=== PATIENT | female | born 1940 | race Caucasian/White ===

== ENCOUNTER 2018-06-08 07:40 | Emergency (ER) | payer MEDICARE ==
[2018-06-08 08:11] VITALS: BP 189/84
--- NOTE | 2018-06-08 08:34 | UC ---
Lower Extremity/Ankle HPI - HPI Summary HPI Summary: Pt presents with c/o left posterior leg pain that begins at mid buttocks, and radiates posteriorly to left calf and heel. Pt denies injury, strain, or hx of blood clots. Pt describes the pain as throbbing and burning. - History of Current Complaint Chief Complaint: UCLowerExtremity Stated Complaint: LEFT LEG THROBBING PAIN Time Seen by Provider: 06/08/18 08:21 Hx Obtained From: Patient ?: No Onset/Duration: Sudden Onset, Lasting Days Severity Initially: Severe Severity Currently: Severe Pain Intensity: 10 Aggravating Factor(s): Nothing Alleviating Factor(s): Nothing Able to Bear Weight: Yes - Risk Factors Gout Risk Factors: Age Over 40, Hypertension DVT Risk Factors: Negative Septic Arthritis Risk Factor: Extremes of Age - Allergies/Home Medications Allergies/Adverse Reactions: Allergies Allergy/AdvReac Type Severity Reaction Status Date / Time No Known Allergies Allergy Verified 06/08/18 08:08 PMH/Surg Hx/FS Hx/Imm Hx Previously Healthy: Yes Endocrine History: Thyroid Disease Cardiovascular History: Cardiac Disease, Hypertension - Surgical History Surgical History: Yes Surgery Procedure, Year, and Place: left ovary removed - Family History Known Family History: Positive: Cardiac Disease - Social History Occupation: Retired Lives: With Family Alcohol Use: None Substance Use Type: None Smoking Status (MU): Former Smoker Have You Smoked in the Last Year: No When Did the Patient Quit Smoking/Using Tobacco: 8 years ago - Immunization History Most Recent Influenza Vaccination: [id number] Review of Systems All Other Systems Reviewed And Are Negative: Yes Constitutional: Positive: Negative Skin: Positive: Negative Eyes: Positive: Negative ENT: Positive: Negative Respiratory: Positive: Negative Cardiovascular: Positive: Negative Gastrointestinal: Positive: Negative Genitourinary: Positive: Negative Motor: Positive: Negative Neurovascular: Positive: Negative Musculoskeletal: Positive: Arthralgia, Myalgia Neurological: Positive: Negative Psychological: Positive: Negative Is Patient Immunocompromised?: No Physical Exam Triage Information Reviewed: Yes Appearance: Pain Distress Vital Signs: Initial Vital Signs Temp 97.9 F 06/08/18 08:06 Pulse 58 06/08/18 08:06 Resp 20 06/08/18 08:06 BP 189/84 06/08/18 08:06 Pulse Ox 96 06/08/18 08:06 Vital Signs Reviewed: Yes Eye Exam: Normal ENT Exam: Normal Dental Exam: Normal Neck exam: Normal Respiratory: Positive: No respiratory distress Musculoskeletal Exam: Normal Musculoskeletal: Positive: Strength Intact, ROM Intact, Other: - pain reproducible, at mid buttock and pt c/o that pain radiates posterior left leg with palpation. no swelling, no red streaking. Lower Extremity Course/Dx - Course Course Of Treatment: I discussed with the pt the s/sx of dvt as well and pt verbalized understanding and agreed to plan of care - Differential Dx/Diagnosis Differential Diagnosis/HQI/PQRI: DVT, Sciatica Provider Diagnosis: Sciatica of left side Discharge - Sign-Out/Discharge Documenting (check all that apply): Patient Departure All imaging exams completed and their final reports reviewed: No Studies - Discharge Plan Condition: Stable Disposition: HOME Prescriptions: Cyclobenzaprine TAB* [Flexeril 10 MG TAB*] 10 mg PO Q8H PRN #15 tab PRN Reason: Pain predniSONE TAB* [Deltasone 10 MG TAB*] 30 mg PO DAILY #12 tab Patient Education Materials: Sciatica (ED), Lower Back Exercises (ED) Referrals: Joycelyn Littlejohn MD [Primary Care Provider] - As Soon As Possible Additional Instructions: PLEASE NOTE THAT IF SYMPTOMS DO NOT IMPROVE OR WORSEN, PLEASE GO DIRECTLY TO THE CLOSEST EMERGENCY ROOM. - Billing Disposition and Condition Condition: STABLE Disposition: Home
== END 2018-06-08 08:45 | disposition home or self-care (01) ==
LOC: UCCORT 07:40
DX: M54.32 Sciatica, left side (principal); I10 Essential (primary) hypertension; Z87.891 Personal history of nicotine dependence
CPT/HCPCS: 99212; G0463

== ENCOUNTER 2018-11-29 13:02 | Emergency (ER) | payer MEDICARE ==
[2018-11-29 14:09] VITALS: BP 141/83
--- NOTE | 2018-11-29 14:29 | UC ---
Respiratory Complaint HPI - HPI Summary HPI Summary: The patient is a 78-year-old female with a 2 to three-day history of nasal congestion sinus pressure and cough. Today she developed a temperature of 101.2. She now has some chest discomfort from coughing so much. She denies any nausea vomiting or diarrhea. She denies any shortness of breath. Streak of pneumonia. She states that she has a right pulmonary nodule.Ex smoker. - History of Current Complaint Chief Complaint: UCRespiratory Stated Complaint: FEVER,CHEST CONGESTION Time Seen by Provider: 11/29/18 14:22 Hx Obtained From: Patient Onset/Duration: Gradual Onset, Lasting Days Timing: Constant Severity Initially: Mild Severity Currently: Moderate Pain Intensity: 0 Pain Scale Used: 0-10 Numeric Character: Cough: Productive Alleviating Factors: Nothing Associated Signs And Symptoms: Positive: Fever, Chills, Nasal Congestion - Allergies/Home Medications Allergies/Adverse Reactions: Allergies Allergy/AdvReac Type Severity Reaction Status Date / Time No Known Allergies Allergy Verified 11/29/18 14:01 Home Medications: Home Medications Aspirin EC TAB* [Ecotrin EC Low Dose 81 MG*] 81 mg PO DAILY 11/29/18 [History Confirmed 11/29/18] Calcium Citrate/Vitamin D3 [Citracal + D3 Maximum] 1 tab PO DAILY 11/29/18 [ History Confirmed 11/29/18] Chlorphen/Dm/Acetaminophen/GG [Coricidin Hbp Day & Night] 2 cap PO Q4H PRN 11/29 [History Confirmed 11/29/18] Cholecalciferol (Vitamin D3) [Vitamin D3] 2,000 unit PO DAILY 11/29/18 [History Confirmed 11/29/18] Cyanocobalamin TAB* [Vitamin B12 TAB*] 500 mcg PO DAILY 11/29/18 [History Confirmed 11/29/18] Dm/PE/Acetaminophen/Chlorphenr [[place] Plus Cold &] 2 cap PO Q4H PRN 11/29 [History Confirmed 11/29/18] Domperidone 10 mg PO TID 11/29/18 [History Confirmed 11/29/18] Levothyroxine TAB* [Synthroid TAB*] 75 mcg PO DAILY 11/29/18 [History Confirmed 11/29/18] Omeprazole CAP (NF) [Prilosec CAP* 20 MG] 20 mg PO DAILY 11/29/18 [History Confirmed 11/29/18] Simvastatin (NF) [Zocor (NF)] 40 mg PO DAILY 11/29/18 [History Confirmed ] PMH/Surg Hx/FS Hx/Imm Hx Previously Healthy: Yes Endocrine History: Dyslipidemia Cardiovascular History: Hypertension, Atrial Fibrillation Respiratory History: Pneumonia GI/ History: Gastroesophageal Reflux - Surgical History Surgical History: Yes Surgery Procedure, Year, and Place: left ovary removed - Family History Known Family History: Positive: Cardiac Disease - Social History Alcohol Use: Rare Substance Use Type: None Smoking Status (MU): Former Smoker Length of Time of Smoking/Using Tobacco: 1 PPD x 37 Years Have You Smoked in the Last Year: No When Did the Patient Quit Smoking/Using Tobacco: 2009 - Immunization History Most Recent Influenza Vaccination: [id number] Review of Systems All Other Systems Reviewed And Are Negative: Yes Constitutional: Positive: Fever, Chills Skin: Positive: Negative Eyes: Positive: Negative ENT: Positive: Negative Respiratory: Positive: Cough Cardiovascular: Positive: Chest Pain - with cough Gastrointestinal: Positive: Negative Genitourinary: Positive: Negative Motor: Positive: Negative Neurovascular: Positive: Negative Musculoskeletal: Positive: Negative Neurological: Positive: Negative Psychological: Positive: Negative Physical Exam Triage Information Reviewed: Yes Appearance: Well-Appearing, No Pain Distress, Well-Nourished Vital Signs: Initial Vital Signs Temp 98.2 F 11/29/18 13:57 Pulse 72 11/29/18 13:57 Resp 18 11/29/18 13:57 BP 141/83 11/29/18 13:57 Pulse Ox 97 11/29/18 13:57 Vital Signs Reviewed: Yes Eyes: Positive: Conjunctiva Clear ENT: Positive: Hearing grossly normal, Pharynx normal, Nasal congestion, TMs normal, Sinus tenderness - max, Uvula midline. Negative: Nasal drainage, Tonsillar swelling, Tonsillar exudate, Trismus, Muffled voice, Hoarse voice, Dental tenderness Neck: Positive: Supple, Nontender, No Lymphadenopathy Respiratory: Positive: No respiratory distress, No accessory muscle use, Crackles - right base Cardiovascular: Positive: No Murmur. Negative: RRR Musculoskeletal: Positive: ROM Intact, No Edema Neurological: Positive: Alert Psychological Exam: Normal Skin Exam: Normal Diagnostics - Radiology No standard instances Radiology Interpretation Completed By: Radiologist Summary of Radiographic Findings: IMPRESSION: RIGHT UPPER LOBE INFILTRATE. Respiratory Course/Dx - Differential Dx/Diagnosis Provider Diagnosis: Pneumonia Discharge - Sign-Out/Discharge Documenting (check all that apply): Patient Departure All imaging exams completed and their final reports reviewed: Yes - Discharge Plan Condition: Stable Disposition: HOME Prescriptions: Amoxicillin/Clavulanate TAB* [Augmentin TAB 875*] 875 mg PO BID #14 tab Patient Education Materials: Pneumonia (ED) Referrals: Joycelyn Littlejohn MD [Primary Care Provider] - 3 Days (recheck early next week) Additional Instructions: TO ER FOR NEW OR WORSENING SYMPTOMS To ER if still febrile after being on antibiotic 48 hours rest fluids - Billing Disposition and Condition Condition: STABLE Disposition: Home
== END 2018-11-29 15:07 | disposition home or self-care (01) ==
LOC: UCCORT 13:02
DX: J18.9 Pneumonia, unspecified organism (principal); I10 Essential (primary) hypertension; I48.91 Unspecified atrial fibrillation; K21.9 Gastro-esophageal reflux disease without esophagitis; Z79.82 Long term (current) use of aspirin; Z79.899 Other long term (current) drug therapy; Z87.891 Personal history of nicotine dependence
CPT/HCPCS: 71046; 99212; G0463

== ENCOUNTER 2019-10-05 08:37 | Emergency (ER) | payer MEDICARE ==
--- OUTSIDE RECORDS SUMMARY | 2019-10-05 08:41 | XMS REPORT | Continuity of Care Document ---
:1940 External Reference #:[id number] Author Name Joycelyn Littlejohn MD Address [address] [place] [id number] Care Team Providers Name Role Phone Valerie Larsenalberto - Gastroenterology Care Team Information [facility] ([facility]) Care Team Information [facility] [phone] Iris Wilder MD - Colon & Rectal Care Team Information [facility] Surgery Claudio Castelan MD - Cardiovascular Care Team Information [facility] [phone] Disease Feliberto Villagran MD Care Team Information [facility] [phone] [place], [place] Care Team Information [facility] Region Problems Active Problems Provider Date Essential hypertension Joycelyn Littlejohn MD Onset: 05/08/2018 Mixed hyperlipidemia Joycelyn Littlejohn MD Onset: 05/08/2018 Hypothyroidism Joycelyn Littlejohn MD Onset: 05/08/2018 Gastroesophageal reflux disease Joycelyn Littlejohn MD Onset: 05/08/2018 Gastroparesis syndrome Joycelyn Littlejohn MD Onset: 05/08/2018 Ex-smoker Joycelyn Littlejohn MD Onset: 05/08/2018 Family history of malignant neoplasm of Joycelyn Littlejohn MD Onset: 2017 gastrointestinal tract Vitamin D deficiency Joycelyn Littlejohn MD Onset: 06/17/2018 Malignant neoplasm of upper lobe, bronchus or Joycelyn Littlejohn MD Onset: 03/2019 lung Chronic obstructive lung disease Joycelyn Littlejohn MD Onset: 09/12/2019 Social History Type Date Description Comments Sex Unknown Tobacco Use Start: Unknown End: Former Cigarette not eligible for Smoker 1 Pack Daily lung cancer screening quit over 15 years ago ; 06/17/18 reviewed, not eligible Cigarette Use Pack Years - 50 Cigarette Use Quit - Age 61 Smoking Status Reviewed: 06/09/19 Former Cigarette not eligible for Smoker 1 Pack Daily lung cancer screening quit over 15 years ago ; 06/17/18 reviewed, not eligible ETOH Use Rarely consumes alcohol Tobacco Use Start: Unknown End: Patient is a former Unknown smoker Recreational Drug Use Denies Drug Use Exercise Type/Frequency Exercises regularly walking regularly weather dependent Allergies, Adverse Reactions, Alerts Description No Known Drug Allergies Medications Active Medications SIG Qnty Indications Ordering Date Provider Prednisone 2 by mouth for 3 10tabs M54.5 [place], 20mg Tablets days, then 1 by MD Joycelyn 0 mouth daily for 4 days Cyclobenzaprine HCL 1 by mouth up to 3 30tabs M54.5 [place], 5mg Tablets times daily MD Joycelyn 0 caution sedation Hydrochlorothiazide 1 by mouth every 90tabs I10 [place], 12.5mg day in the morning MD Joycelyn 0 Tablets Propafenone HCL ER 1 po daily I48.91 Ly Estella 325mg Caps Simonetta, 0 ER 12HR N.P. Eliquis Take One Tablet By 180tabs I48.91 [place], 5mg Tablets Mouth Twice A Day MD Joycelyn 9 Vitamin B-12 1 by mouth, daily 90tabs K31.84 [place], 500mcg Tablets with meal with MD Joycelyn 8 dinner with proteintaking 1/2 of 500mcg Lisinopril 1 by mouth every 90tabs I10 [place], 20mg Tablets day in the morning MD Joycelyn 8 Omeprazole 1 by mouth daily 90caps K21.9 [place], 20mg Capsules DR as needed, 30min MD Joycelyn 8 before a meal K31.84 Ondansetron HCL Take One Tablet By K31.84 Erica Larsen 4mg Tablets Mouth Every Day K21.9 Citracal +D3 1 chewtab daily. Unknown [id number]-mg-Unit Chewtabs Vitamin D3 1 by mouth daily 90caps E55.9 Unknown 2000Unit Capsules after dinner with meat fat or oil Domperidone 1 PO tid K31.84 Erica Larsen 10mg K21.9 Levothyroxine Sodium 1 by mouth every 90tabs E03.9 Joycelyn Littlejohn MD 75mcg day first thing in Tablets morning, no food or meds for 30min Simvastatin take one tablet by 90tabs E78.2 Joycelyn Littlejohn MD 40mg Tablets mouth every day History Medications Naproxen Sodium 1 by mouth q12 Unknown 06/05/2019 - hours Due To Stop 06/18/2019 220mg Capsules In 2 Day S Diclofenac Sodium apply to the C34.11 Feliberto Villagran, 06/02/2019 - affected area 06/18/2019 1% Gel four times a day as needed Amiodarone HCL 1 po daily per 150tabs I49.3 Feliberto Villagran, 05/25/2019 - 06/10 [facility] 06/18/2019 200mg Tablets dc I48.91 Enoxaparin Sodium I48.91 Unknown 05/22/2019 - 06/05/2019 40mg/0.4ML Solution C34.11 Immunizations CPT Code Status Date Vaccine Reaction Lot # [id number] Given 03/03/2019 Flu Vaccine NOS GIVEN AT PHARMACY 17638 Given 12/17/2018 Pneumococcal 23 Immunization [id number] Adult Or Immunosuppressed Patient Q2039 Given 03/27/2018 [place] [address] Given 11/19/2016 Zoster (Zostavax) nysiis 20709 Given 06/18/2016 Prevnar 13 Pneumococal PER PT WAS GIVEN AT Conjugate Vaccine [facility] Q2039 Given 02/24/2016 Flu Vaccine NOS nysiis 86342 Given 12/28/2010 Tetanus And Diptheria Toxoid 7 Years And Older Preserv Free 08990 Given 11/18/2008 Pneumococcal 23 Immunization [facility] Adult Or Immunosuppressed Patient 18464 Refused 06/03/2019 Shingrix (Shingles) Zoster aware seo professional get at pharmacy Vaccine HZV, Recombinant, Subunit, Adj Q2039 Refused 01/29/2019 Flu Vaccine NOS will get in fall 68700 Refused 05/08/2018 Shingrix (Shingles) Zoster WILL GET IN 2021 Vaccine HZV, Recombinant, Subunit, Adj 97357 Refused 05/08/2018 Tdap (Adacel) Ages 7 And Above WILL GET AT PHARMACY Only Vital Signs Date Vital Result Comment 10/03/2019 3:53pm Weight 163.00 lb Heart Rate 77 /min BP Systolic 146 mmHg BP Diastolic 71 mmHg Height 63 inches 5'3" O2 % BldC Oximetry 95 % Ra BMI (Body Mass Index) 28.9 kg/m2 09/12/2019 10:58am Body Temperature 98.4 F Weight 160.00 lb Heart Rate 77 /min BP Systolic 140 mmHg BP Diastolic 73 mmHg Height 63 inches 5'3" BMI (Body Mass Index) 28.3 kg/m2 Results Test Acquired Date Facility Test Result H/L Range Note [facility] test [facility]2019 [facility] Vitamin D 25 42 ng/mL 30-100 1, 2 finding Hydroxy TSH 2.60 uIU/mL 0.35-4.94 Lipid 09/17/2019 [facility] Cholesterol 207 mg/dL High 50-199 Triglycerides 51 mg/dL 30-200 HDL 86 mg/dL High 35-85 3 Chol/ HDL Ratio 2.4 ratio Low 3.7-5.6 VLDL 10 mg/dL 2-29 LDL (Calc) 111 mg/dL High 20-99 4 Laboratory test finding 09/17/2019 [facility] CPK 136 U/L 12-199 Vitamin B12 594 pg/mL 180-914 Magnesium 2.0 mg/dL 1.5-2.7 CBC with Auto Diff-fcmg 09/17/2019 [facility] WBC 5.4 K/uL 4.1-11.0 5 RBC 4.41 M/uL 4.00-5.40 6 Hemoglobin 12.4 gm/dL 12.0-16.0 7 Hematocrit 37.6 % 36.0-47.0 8 MCV 85.2 fL 80.0-95.0 9 MCH 28.1 pg 27.0-32.0 10 MCHC 33.0 g/dL 32.0-36.0 11 RDW 14.4 % 10.5-14.5 12 PLT Count 295 K/ul 150-400 13 MPV 7.6 FL 7.1-10.7 Neutrophil 74.4 % 35.0-75.0 14 Lymphocyte 16.0 % 16.0-52.0 15 Monocyte 7.5 % 0.0-8.0 16 Eosinophil 1.1 % 0.0-5.0 Basophil 1.0 % 0.0-4.0 Abs Neutrophils 4.0 K/uL 1.8-7.7 17 Abs Lymphocytes 0.9 K/uL Low 1.2-4.8 18 Abs Monocytes 0.4 K/uL 0.0-0.8 19 Abs Eosinophils 0.1 K/uL 0.0-0.5 20 Abs Basophils 0.1 K/uL 0.0-0.2 21 Comprehensive Met Panel-[facility]CMG 09/17/2019 [facility] Sodium 135 mmol/L 135- 146 22 Potassium 4.4 mmol/L 3.5-5.2 Chloride# 100 mmol/L 97-110 23 Carbon Dioxide 26 mmol/L 24-34 Calcium 8.9 mg/dL 8.5-10.5 24 Glucose 101 mg/dL 70-105 BUN 12 mg/dL 6-26 Creatinine 0.6 mg/dL 0.5-1.4 Total Protein 6.0 g/dL 6.0-8.0 Albumin 3.7 g/dL 3.6-4.9 Globulin 2.3 g/dL 2.0-3.5 A/G Ratio 1.6 Ratio 1.0-2.2 Total Bilirubin 0.8 mg/dL 0.1-1.3 Alkaline Phosphatase 92 U/L 24-140 Alt 14 U/L 3-42 Ast 16 U/L 8-42 Anion Gap 9 mmol/L 5-15 25 Female Egfr 87 >60 26 Male Egfr 96 >60 27 Laboratory test 09/17/2019 [facility] Osmolality,Serum 285 mosm/kg (280-300 ) 28 finding Laboratory test 06/19/2019 [facility] Osmolality,Serum 284 mosm/kg (280-300 ) 29, 30 finding Comprehensive Met 06/19/2019 [facility] Sodium 134 mmol/L Low 135-146 31 Panel-FCMG Potassium 4.3 mmol/L 3.5-5.2 Chloride# 96 mmol/L Low 97-110 32 Carbon Dioxide 32 mmol/L 24-34 Calcium 9.0 mg/dL 8.5-10.5 33 Glucose 94 mg/dL 70-105 BUN 15 mg/dL 6-26 Creatinine 0.6 mg/dL 0.5-1.4 Total Protein 6.1 g/dL 6.0-8.0 Albumin 4.0 g/dL 3.6-4.9 Globulin 2.1 g/dL 2.0-3.5 A/G Ratio 1.9 Ratio 1.0-2.2 Total Bilirubin 0.4 mg/dL 0.1-1.3 Alkaline Phosphatase 96 U/L 24-140 Alt 24 U/L 3-42 Ast 15 U/L 8-42 Anion Gap 6 mmol/L 5-15 34 Female Egfr 87 >60 35 Male Egfr 97 >60 36 Laboratory test finding 06/09/2019 [facility] CK 85 U/L Normal 26-192 37 (315)- - Troponin-I < 0.015 ng/mL 38 Comprehensive Metabolic 06/09/2019 [facility] Glucose 128 mg/dL High 74-106 Panel (315)- - BUN 9 mg/dL Normal 7-18 Creatinine 0.9 mg/dL Normal 0.6-1.3 Glom Filtration Rate, Estimate >60 mL/min >60 If >60 mL/min >60 39 BUN/Creat 10.0 ratio Sodium 126 mmol/L Low 136-145 Potassium 2.9 mmol/L Low 3.5-5.1 Chloride 90 mmol/L Low 98-107 Carbon Dioxide 32 mmol/L Normal 21-32 Anion Gap 4 mEq/L Low 8-16 Calcium 9.1 mg/dL Normal 8.5-10.1 Total Protein 8.1 g/dL Normal 6.4-8.2 Albumin 3.6 g/dL Normal 3.4-5.0 Globulin 4.5 g/dL High 1.9-4.3 Alb/Glob 0.8 ratio Bilirubin,Total 0.7 mg/dL Normal 0.2-1.0 Sgot/Ast 21 U/L Normal 15-37 SGPT/Alt 33 U/L Normal 12-78 Alkaline Phosphatase 118 U/L High 45-117 CBS W/Automated 06/09/2019 [facility] White Blood 7.4 K/ uL Normal 3.1-10.7 Diff (315)- - Count Red Blood Count 4.86 M/uL Normal 3.90-5.40 Hemoglobin 14.0 gm/dL Normal 11.6-15.8 Hematocrit 41.9 % Normal 36.0-46.1 Mean Cell Volume 86.2 fl Normal 80.9-99.0 Mean Corpuscular HGB 28.8 pg Normal 25.9-32.7 Mean Corpuscular HGB Conc 33.4 g/dL Normal 30.8-34.3 Platelet Count 390 K/uL High 155-360 Red Cell Distri Width SD 42.6 fl Normal 36-47 Red Cell Distri Width %CV 13.7 % Normal 11.7-14.4 Mean Platelet Volume 8.8 fl Low 8.9-12.4 Neut% 76.7 % High 40.4-72.8 Lymph % 17.1 % Low 20.0-42.0 Campbell % 3.7 % Low 4.3-13.2 Eo% 1.6 % Normal 0.0-6.6 Bas% 0.5 % Normal 0.0-1.1 Immature Grans 0.4 % Normal 0.0-5.0 NRBC % 0.0 /100WBC < 10/ 100 WBC Neut# 5.67 K/uL Normal 1.8-7.0 Lymph # 1.26 K/uL Normal 1.0-4.0 Campbell # 0.27 K/uL Low 0.3-0.9 Eos # 0.12 K/uL Normal 0.0-0.5 Baso # 0.04 K/uL Normal 0.0-0.1 Immature Grans Absolute 0.03 K/uL NRBC # 0.00 K/uL Urinalysis With 06/09/2019 [facility] Urine Color Light- Yellow Yellow Microscopic (315)- - Urine Clarity Clear Clear Urine Glucose - Dipstick NEGATIVE mg/dL Negative Urine Bilirubin - Dipstick NEGATIVE Negative Urine Ketone NEGATIVE mg/dL Negative Urine Specific Marceline 1.006 Low 1.010-1.030 Urine Blood NEGATIVE Negative Urine PH 6.5 Normal 6.5-7.5 Urine Protein - Dipstick NEGATIVE mg/dL Negative Urine Urobilinogen - Dipstick < 2.0 mg/dL < 2.0 Urine Nitrite - Dipstick NEGATIVE Negative Urine Leuk Esterase TRACE Abnormal Negative Urine RBC 0-2 rbc/hpf 0-2 Urine WBC 3-5 wbc/hpf 0-5 Urine Epithelial Cells MANY /lpf None Seen Source: URINE, CLEAN CAT <SEE NOTE> 40 Comprehensive Met Panel-[facility] 06/04/2019 [facility] Sodium 131 mmol/L Low 135 -146 41, 42 Potassium 3.7 mmol/L 3.5-5.2 Chloride# 93 mmol/L Low 97-110 43 Carbon Dioxide 28 mmol/L 24-34 Calcium 8.7 mg/dL 8.5-10.5 44 Glucose 121 mg/dL High 70-105 BUN 24 mg/dL 6-26 Creatinine 0.8 mg/dL 0.5-1.4 Total Protein 5.9 g/dL Low 6.0-8.0 Albumin 3.6 g/dL 3.6-4.9 Globulin 2.3 g/dL 2.0-3.5 A/G Ratio 1.6 Ratio 1.0-2.2 Total Bilirubin 0.5 mg/dL 0.1-1.3 Alkaline Phosphatase 88 U/L 24-140 Alt 14 U/L 3-42 Ast 13 U/L 8-42 Anion Gap 10 mmol/L 5-15 45 Female Egfr 66 >60 46 Male Egfr 84 >60 47 Laboratory test finding 06/04/2019 [facility] CPK 34 U/L 12-199 Lipid 06/04/2019 [facility] Cholesterol 188 mg/dL 50-199 Triglycerides 94 mg/dL 30-200 HDL 81 mg/dL 35-85 48 Chol/ HDL Ratio 2.3 ratio Low 3.7-5.6 VLDL 19 mg/dL 2-29 LDL (Calc) 88 mg/dL 20-99 49 Laboratory test finding 06/04/2019 [facility] TSH 3.37 uIU/mL 0.35-4.94 Glucose 121 mg/dL High 70-105 Hemoglobin A1c 06/04/2019 [facility] Hemoglobin A1c 6.1 % High 4.1-5.9 Estimated Average Glucose Calc 128 mg/dL 71-140 CBC with Auto Diff-fcmg 06/04/2019 [facility] WBC 9.4 K/uL 4.1-11.0 50 RBC 4.24 M/uL 4.00-5.40 51 Hemoglobin 12.3 gm/dL 12.0-16.0 52 Hematocrit 36.5 % 36.0-47.0 53 MCV 86.0 fL 80.0-95.0 54 MCH 29.0 pg 27.0-32.0 55 MCHC 33.7 g/dL 32.0-36.0 56 RDW 13.9 % 10.5-14.5 57 PLT Count 342 K/ul 150-400 58 MPV 7.2 FL 7.1-10.7 Neutrophil 83.5 % High 35.0-75.0 59 Lymphocyte 9.5 % Low 16.0-52.0 60 Monocyte 6.5 % 0.0-8.0 61 Eosinophil 0.2 % 0.0-5.0 Basophil 0.3 % 0.0-4.0 Abs Neutrophils 7.9 K/uL High 1.8-7.7 62 Abs Lymphocytes 0.9 K/uL Low 1.2-4.8 63 Abs Monocytes 0.6 K/uL 0.0-0.8 64 Abs Eosinophils 0.0 K/uL 0.0-0.5 65 Abs Basophils 0.0 K/uL 0.0-0.2 66 Laboratory test finding 06/04/2019 [facility] Free T4 1.42 ng/dL 0.70-1.48 Laboratory test finding 05/27/2019 [facility] TSH 4.19 uIU/mL 0.35-4.94 67 Free T4 1.37 ng/dL 0.70-1.48 CBC with Auto Diff-fcmg 05/27/2019 [facility] WBC 7.3 K/uL 4.1-11.0 68 RBC 4.09 M/uL 4.00-5.40 69 Hemoglobin 12.0 gm/dL 12.0-16.0 70 Hematocrit 35.7 % Low 36.0-47.0 71 MCV 87.4 fL 80.0-95.0 72 MCH 29.3 pg 27.0-32.0 73 MCHC 33.6 g/dL 32.0-36.0 74 RDW 14.1 % 10.5-14.5 75 PLT Count 259 K/ul 150-400 76 MPV 8.1 FL 7.1-10.7 Neutrophil 75.5 % High 35.0-75.0 77 Lymphocyte 13.9 % Low 16.0-52.0 78 Monocyte 9.5 % High 0.0-8.0 79 Eosinophil 0.5 % 0.0-5.0 Basophil 0.6 % 0.0-4.0 Abs Neutrophils 5.5 K/uL 1.8-7.7 80 Abs Lymphocytes 1.0 K/uL Low 1.2-4.8 81 Abs Monocytes 0.7 K/uL 0.0-0.8 82 Abs Eosinophils 0.0 K/uL 0.0-0.5 83 Abs Basophils 0.0 K/uL 0.0-0.2 84 Comprehensive Met Panel-FCMG 05/27/2019 [facility] Sodium 138 mmol/L 135- 146 85 Potassium 3.8 mmol/L 3.5-5.2 Chloride# 98 mmol/L 97-110 86 Carbon Dioxide 33 mmol/L 24-34 Calcium 8.5 mg/dL 8.5-10.5 87 Glucose 87 mg/dL 70-105 BUN 7 mg/dL 6-26 Creatinine 0.5 mg/dL 0.5-1.4 Total Protein 5.7 g/dL Low 6.0-8.0 Albumin 3.4 g/dL Low 3.6-4.9 Globulin 2.3 g/dL 2.0-3.5 A/G Ratio 1.5 Ratio 1.0-2.2 Total Bilirubin 0.6 mg/dL 0.1-1.3 Alkaline Phosphatase 69 U/L 24-140 Alt 14 U/L 3-42 Ast 16 U/L 8-42 Anion Gap 7 mmol/L 5-15 88 Female Egfr 92 >60 89 Male Egfr 103 >60 90 Laboratory test finding 05/27/2019 [facility] Magnesium 1.7 mg/dL 1.5-2.7 Hemoglobin A1c 05/27/2019 [facility] Hemoglobin A1c 6.1 % High 4.1-5.9 Estimated Average Glucose Calc 128 mg/dL 71-140 1 today or sunday k in [facility] 2 Clinical Guidelines for recommended serum 25(OH)Vitamin D Deficient at less than 20 ng/mL Insufficient at 20 to <30 ng/mL Sufficient at 30-100 ng/mL Toxicity at greater than 100 ng/mL 3 Per NCEP ATP III Guidelines: Results lower than 40 mg/dL are suggestive of increased risk for coronary artery disease. Results > or = to 60 mg/dL are considered a negative risk factor. 4 Per NCEP ATP III Guidelines: Normal Population <130 Patients with medical conditions: CHD/DM Optimal: <100 Borderline high: 130-159 High: 160-189 Very high: >189 5 Updated Reference Range 04/2019 6 Updated Reference Range 04/2019 7 Updated Reference Range 04/2019 8 Updated Reference Range 04/2019 9 Updated Reference Range 04/2019 10 Updated Reference Range 04/2019 11 Updated Reference range 04/2019 12 Updated Reference range 04/2019 13 Updated Reference Range 04/2019 14 Updated Reference Range 04/2019 15 Updated Reference Range 04/2019 16 Updated Reference Range 04/2019 17 Updated Reference Range 04/2019 18 Updated Reference Range 04/2019 19 Updated Reference Range 04/2019 20 Updated Reference Range 04/2019 21 Updated Reference Range 04/2019 22 Updated reference range on new analyzer 23 Updated reference range on new analyzer 24 Updated reference range 10-16-2018 25 Updated Reference Range 26 Concerning GFR Guidelines for Americans: Normal function or mild renal disease, if clinically at risk: >/= 60 mL/min Moderately decreased: 30-59 Severely decreased: 15-29 Renal failure: <15 There is reduced accuracy above 60ml/min/1.73 m squared, but the numeric value may be clinically useful in the near 60 range 27 Concerning GFR Guidelines: Normal function or mild renal disease, if clinically at risk: >/= 60 mL/min Moderately decreased: 30-59 Severely decreased: 15-29 Renal failure: <15 There is reduced accuracy above 60ml/min/1.73 m squared, but the numeric value may be clinically useful in the near 60 range Glomerular Filtration Rate (GFR) is estimated based on the CKD-EPI equation, which assumes a steady state for creatinine as recommended by the National Kidney Disease Education Program in conjunction with the National Institutes of Health and the National Kidney Foundation. Clinical conditions in which it may be necessary to measure GFR by using clearance methods include extremes of age and body size, severe malnutrition or obesity, diseases of skeletal muscle, paraplegia or quadriplegia, vegetarian diet, rapidly changing kidney function, and calculation of the dose of potentially toxic drugs that are excreted by the kidneys. 28 PERFORMED AT [address] [place] [address] Unless otherwise specified, testing performed by [facility] [address] [place] [address] 29 today letter 30 PERFORMED AT [address] [place] [address] Unless otherwise specified, testing performed by [facility] [place] [place] [address] 31 Updated reference range on new analyzer 32 Updated reference range on new analyzer 33 Updated reference range 10-16-2018 34 Updated Reference Range 35 Concerning GFR Guidelines for Americans: Normal function or mild renal disease, if clinically at risk: >/= 60 mL/min Moderately decreased: 30-59 Severely decreased: 15-29 Renal failure: <15 There is reduced accuracy above 60ml/min/1.73 m squared, but the numeric value may be clinically useful in the near 60 range 36 Concerning GFR Guidelines: Normal function or mild renal disease, if clinically at risk: >/= 60 mL/min Moderately decreased: 30-59 Severely decreased: 15-29 Renal failure: <15 There is reduced accuracy above 60ml/min/1.73 m squared, but the numeric value may be clinically useful in the near 60 range Glomerular Filtration Rate (GFR) is estimated based on the CKD-EPI equation, which assumes a steady state for creatinine as recommended by the National Kidney Disease Education Program in conjunction with the National Institutes of Health and the National Kidney Foundation. Clinical conditions in which it may be necessary to measure GFR by using clearance methods include extremes of age and body size, severe malnutrition or obesity, diseases of skeletal muscle, paraplegia or quadriplegia, vegetarian diet, rapidly changing kidney function, and calculation of the dose of potentially toxic drugs that are excreted by the kidneys. 37 DR LITTLEJOHN SENT OVER SODIUM LOW, HIT HEAD 38 0.0 - 0.045 ng/mL: Normal 0.046 - 0.5 ng/mL: Suggestive 0.6 - 1.5 ng/mL: Consistent 39 Note: Persistent reduction for 3 months or more in an eGFR <60 mL/min/1.73 m2 defines CKD. Patients with eGFR values >/=60 mL/min/1.73 m2 may also have CKD if evidence of persistent proteinuria is present. The original MDRD equation for estimated GFR is not valid for patients less than 18 years of age. Additional information may be found at www.kdoqi.org. 40 URINE, CLEAN CATCH 41 before visit 05/2020 42 Updated reference range on new analyzer 43 Updated reference range on new analyzer 44 Updated reference range 10-16-2018 45 Updated Reference Range 46 Concerning GFR Guidelines for Americans: Normal function or mild renal disease, if clinically at risk: >/= 60 mL/min Moderately decreased: 30-59 Severely decreased: 15-29 Renal failure: <15 There is reduced accuracy above 60ml/min/1.73 m squared, but the numeric value may be clinically useful in the near 60 range 47 Concerning GFR Guidelines: Normal function or mild renal disease, if clinically at risk: >/= 60 mL/min Moderately decreased: 30-59 Severely decreased: 15-29 Renal failure: <15 There is reduced accuracy above 60ml/min/1.73 m squared, but the numeric value may be clinically useful in the near 60 range Glomerular Filtration Rate (GFR) is estimated based on the CKD-EPI equation, which assumes a steady state for creatinine as recommended by the National Kidney Disease Education Program in conjunction with the National Institutes of Health and the National Kidney Foundation. Clinical conditions in which it may be necessary to measure GFR by using clearance methods include extremes of age and body size, severe malnutrition or obesity, diseases of skeletal muscle, paraplegia or quadriplegia, vegetarian diet, rapidly changing kidney function, and calculation of the dose of potentially toxic drugs that are excreted by the kidneys. 48 Per NCEP ATP III Guidelines: Results lower than 40 mg/dL are suggestive of increased risk for coronary artery disease. Results > or = to 60 mg/dL are considered a negative risk factor. 49 Per NCEP ATP III Guidelines: Normal Population <130 Patients with medical conditions: CHD/DM Optimal: <100 Borderline high: 130-159 High: 160-189 Very high: >189 50 Updated Reference Range 04/2019 51 Updated Reference Range 04/2019 52 Updated Reference Range 04/2019 53 Updated Reference Range 04/2019 54 Updated Reference Range 04/2019 55 Updated Reference Range 04/2019 56 Updated Reference range 04/2019 57 Updated Reference range 04/2019 58 Updated Reference Range 04/2019 59 Updated Reference Range 04/2019 60 Updated Reference Range 04/2019 61 Updated Reference Range 04/2019 62 Updated Reference Range 04/2019 63 Updated Reference Range 04/2019 64 Updated Reference Range 04/2019 65 Updated Reference Range 04/2019 66 Updated Reference Range 04/2019 67 today ov fu 68 Updated Reference Range 04/2019 69 Updated Reference Range 04/2019 70 Updated Reference Range 04/2019 71 Updated Reference Range 04/2019 72 Updated Reference Range 04/2019 73 Updated Reference Range 04/2019 74 Updated Reference range 04/2019 75 Updated Reference range 04/2019 76 Updated Reference Range 04/2019 77 Updated Reference Range 04/2019 78 Updated Reference Range 04/2019 79 Updated Reference Range 04/2019 80 Updated Reference Range 04/2019 81 Updated Reference Range 04/2019 82 Updated Reference Range 04/2019 83 Updated Reference Range 04/2019 84 Updated Reference Range 04/2019 85 Updated reference range on new analyzer 86 Updated reference range on new analyzer 87 Updated reference range 10-16-2018 88 Updated Reference Range 89 Concerning GFR Guidelines for Americans: Normal function or mild renal disease, if clinically at risk: >/= 60 mL/min Moderately decreased: 30-59 Severely decreased: 15-29 Renal failure: <15 There is reduced accuracy above 60ml/min/1.73 m squared, but the numeric value may be clinically useful in the near 60 range 90 Concerning GFR Guidelines: Normal function or mild renal disease, if clinically at risk: >/= 60 mL/min Moderately decreased: 30-59 Severely decreased: 15-29 Renal failure: <15 There is reduced accuracy above 60ml/min/1.73 m squared, but the numeric value may be clinically useful in the near 60 range Glomerular Filtration Rate (GFR) is estimated based on the CKD-EPI equation, which assumes a steady state for creatinine as recommended by the National Kidney Disease Education Program in conjunction with the National Institutes of Health and the National Kidney Foundation. Clinical conditions in which it may be necessary to measure GFR by using clearance methods include extremes of age and body size, severe malnutrition or obesity, diseases of skeletal muscle, paraplegia or quadriplegia, vegetarian diet, rapidly changing kidney function, and calculation of the dose of potentially toxic drugs that are excreted by the kidneys. Procedures Date Code Description Status 06/19/2019 54158 Measure Blood Oxygen Level Single Determination Completed 06/19/2019 51243 Electrocardiogram Complete Completed 06/09/2019 96273 Measure Blood Oxygen Level Single Determination Completed 06/03/2019 54885 Electrocardiogram Complete Completed 05/27/2019 17129 Measure Blood Oxygen Level Single Determination Completed 05/27/2019 87005 Rhythm ECG W/Interpretation & Report Completed 05/27/2019 33572 Electrocardiogram Complete Completed 04/08/2018 [id number] Mammogram Completed 09/01/2014 [id number] Colonoscopy Completed Medical Devices Description No Information Available Encounters Type Date Location Provider Dx Diagnosis Office Visit 10/03/2019 3:15p [facility] Joycelyn Littlejohn MD M54.5 Low back pain I10 Essential (primary) hypertension F43.20 Adjustment disorder, unspecified Z68.28 Body mass index (BMI) 28.0-28.9, adult Office Visit 09/12/2019 10:45a [facility] Joycelyn Littlejohn MD I10 Essential ( primary) hypertension E03.9 Hypothyroidism, unspecified E78.2 Mixed hyperlipidemia E87.1 Hypo-osmolality and hyponatremia E87.6 Hypokalemia C34.11 Malignant neoplasm of upper lobe, RIGHT bronchus or lung J44.9 Chronic obstructive pulmonary disease, unspecified K21.9 Gastro-esophageal reflux disease without esophagitis K31.84 Gastroparesis Z87.891 Personal history of nicotine dependence E55.9 Vitamin D deficiency, unspecified I48.91 Unspecified atrial fibrillation Z79.01 skilled nursing (current) use of anticoagulants Z71.89 Other specified counseling Z68.28 Body mass index (BMI) 28.0-28.9, adult Office Visit 06/09/2019 3:30p [facility] Joycelyn Littlejohn MD Z00.01 Encounter for general adult medical exam w abnormal findings S00.03xA Contusion of scalp, initial encounter S09.90xA Unspecified injury of head, initial encounter R11.0 Nausea R55 Syncope and collapse K31.84 Gastroparesis E87.1 Hypo-osmolality and hyponatremia C34.11 Malignant neoplasm of upper lobe, RIGHT bronchus or lung E03.9 Hypothyroidism, unspecified I10 Essential (primary) hypertension Z13.31 Encounter for screening for depression Z13.89 Encounter for screening for other disorder E78.2 Mixed hyperlipidemia I48.91 Unspecified atrial fibrillation J44.9 Chronic obstructive pulmonary disease, unspecified K21.9 Gastro-esophageal reflux disease without esophagitis Z12.31 Encntr screen mammogram for malignant neoplasm of breast Z87.891 Personal history of nicotine dependence E55.9 Vitamin D deficiency, unspecified Z12.11 Encounter for screening for malignant neoplasm of colon Z80.0 Family history of malignant neoplasm of digestive organs Z68.27 Body mass index (BMI) 27.0-27.9, adult Office Visit 06/03/2019 4:15p [facility] Joycelyn Littlejohn MD I48.91 Unspecified atrial fibrillation C34.11 Malignant neoplasm of upper lobe, RIGHT bronchus or lung I10 Essential (primary) hypertension K31.84 Gastroparesis E03.9 Hypothyroidism, unspecified Z68.28 Body mass index (BMI) 28.0-28.9, adult Assessments Date Code Description Provider 10/03/2019 M54.5 Low back pain Joycelyn Littlejohn MD 10/03/2019 I10 Essential (primary) hypertension Joycelyn Littlejohn MD 10/03/2019 F43.20 Adjustment disorder, unspecified Joycelyn Littlejohn MD 10/03/2019 Z68.28 Body mass index (BMI) 28.0-28.9, adult Joycelyn Littlejohn MD 09/17/2019 E87.1 Hypo-osmolality and hyponatremia Joycelyn Littlejohn MD 09/17/2019 E87.1 Hypo-osmolality and hyponatremia Schedule, Laboratory 09/17/2019 E55.9 Vitamin D deficiency, unspecified Joycelyn Littlejohn MD 09/17/2019 E55.9 Vitamin D deficiency, unspecified Schedule, Laboratory 09/17/2019 E03.9 Hypothyroidism, unspecified Joycelyn Littlejohn MD 09/17/2019 E03.9 Hypothyroidism, unspecified Schedule, Laboratory 09/17/2019 E78.2 Mixed hyperlipidemia Joycelyn Littlejohn MD 09/17/2019 E78.2 Mixed hyperlipidemia Schedule, Laboratory 09/17/2019 E53.9 Vitamin B deficiency, unspecified Joycelyn Littlejohn MD 09/17/2019 E53.9 Vitamin B deficiency, unspecified Schedule, Laboratory 09/17/2019 K21.9 Gastro-esophageal reflux disease without Joycelyn Littlejohn MD esophagitis 09/17/2019 K21.9 Gastro-esophageal reflux disease without Schedule, Laboratory esophagitis 09/17/2019 Z79.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 Joycelyn Littlejohn MD 09/17/2019 Z79.899 Other jail (current) drug therapy Schedule, Laboratory 09/17/2019 E55.9 Vitamin D deficiency, unspecified [facility] 09/17/2019 E03.9 Hypothyroidism, unspecified [facility] 09/17/2019 E78.2 Mixed hyperlipidemia [facility] 09/17/2019 E87.1 Hypo-osmolality and hyponatremia [facility] 09/17/2019 E53.9 Vitamin B deficiency, unspecified [facility] 09/17/2019 K21.9 Gastro-esophageal reflux disease without [facility] esophagitis 09/17/2019 Z79.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 [facility] 09/12/2019 I10 Essential (primary) hypertension Joycelyn Littlejohn MD 09/12/2019 E03.9 Hypothyroidism, unspecified Joycelyn Littlejohn MD 09/12/2019 E78.2 Mixed hyperlipidemia Joycelyn Littlejohn MD 09/12/2019 E87.1 Hypo-osmolality and hyponatremia Joyeclyn Littlejohn MD 09/12/2019 E87.6 Hypokalemia Joycelyn Littlejohn MD 09/12/2019 C34.11 Malignant neoplasm of upper lobe, RIGHT Joycelyn Littlejohn MD bronchus or lung 09/12/2019 J44.9 Chronic obstructive pulmonary disease, Joycelyn Littlejohn MD unspecified 09/12/2019 K21.9 Gastro-esophageal reflux disease without Joycelyn Littlejohn MD esophagitis 09/12/2019 K31.84 Gastroparesis Joycelyn Littlejohn MD 09/12/2019 Z87.891 Personal history of nicotine dependence Joycelyn Littlejohn MD 09/12/2019 E55.9 Vitamin D deficiency, unspecified Joycelyn Littlejohn MD 09/12/2019 I48.91 Unspecified atrial fibrillation Joycelyn Littlejohn MD 09/12/2019 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 Joycelyn Littlejohn MD 09/12/2019 Z71.89 Other specified counseling Joycelyn Littlejohn MD 09/12/2019 Z68.28 Body mass index (BMI) 28.0-28.9, adult Joycelyn Littlejohn MD 06/19/2019 E87.1 Hypo-osmolality and hyponatremia Joycelyn Littlejohn MD 06/19/2019 R55 Syncope and collapse Joycelyn Littlejohn MD 06/19/2019 E87.6 Hypokalemia Joycelyn Littlejohn MD 06/19/2019 I48.91 Unspecified atrial fibrillation Joycelyn Littlejohn MD 06/19/2019 I10 Essential (primary) hypertension Joycelyn Littlejohn MD 06/19/2019 E87.1 Hypo-osmolality and hyponatremia Joycelyn Littlejohn MD 06/19/2019 E87.6 Hypokalemia Joycelyn Littlejohn MD 06/19/2019 C34.11 Malignant neoplasm of upper lobe, RIGHT Joycelyn Littlejohn MD bronchus or lung 06/19/2019 I10 Essential (primary) hypertension Joycelyn Littlejohn MD 06/19/2019 E03.9 Hypothyroidism, unspecified Joycelyn Littlejohn MD 06/19/2019 E78.2 Mixed hyperlipidemia Joycelyn Littlejohn MD 06/19/2019 J44.9 Chronic obstructive pulmonary disease, Joycelyn Littlejohn MD unspecified 06/19/2019 K21.9 Gastro-esophageal reflux disease without Joycelyn Littlejohn MD esophagitis 06/19/2019 K31.84 Gastroparesis Joycelyn Littlejohn MD 06/19/2019 Z68.28 Body mass index (BMI) 28.0-28.9, adult Joycelyn Littlejohn MD 06/19/2019 E87.1 Hypo-osmolality and hyponatremia Schedule, Laboratory 06/19/2019 E87.6 Hypokalemia Schedule, Laboratory 06/19/2019 I10 Essential (primary) hypertension Schedule, Laboratory 06/19/2019 E87.1 Hypo-osmolality and hyponatremia [facility] 06/19/2019 E87.6 Hypokalemia [facility] 06/19/2019 I10 Essential (primary) hypertension [facility] 06/09/2019 Z00.01 Encounter for general adult medical Joycelyn Littlejohn MD examination with abnorma 06/09/2019 S00.03xA Contusion of scalp, initial encounter Joycelyn Littlejohn MD 06/09/2019 S09.90xA Unspecified injury of head, initial Joycelyn Littlejohn MD encounter 06/09/2019 R11.0 Nausea Joycelyn Littlejohn MD 06/09/2019 R55 Syncope and collapse Joycelyn Littlejohn MD 06/09/2019 K31.84 Gastroparesis Joycelyn Littlejohn MD 06/09/2019 E87.1 Hypo-osmolality and hyponatremia Joycelyn Littlejohn MD 06/09/2019 C34.11 Malignant neoplasm of upper lobe, RIGHT Joycelyn Littlejohn MD bronchus or lung 06/09/2019 E03.9 Hypothyroidism, unspecified Joycelyn Littlejohn MD 06/09/2019 I10 Essential (primary) hypertension Joycelyn Littlejohn MD 06/09/2019 Z13.31 Encounter for screening for depression Joycelyn Littlejohn MD 06/09/2019 Z13.89 Encounter for screening for other Joycelyn Littlejohn MD disorder 06/09/2019 E78.2 Mixed hyperlipidemia Joycelyn Littlejohn MD 06/09/2019 I48.91 Unspecified atrial fibrillation Joycelyn Littlejohn MD 06/09/2019 J44.9 Chronic obstructive pulmonary disease, Joycelyn Littlejohn MD unspecified 06/09/2019 K21.9 Gastro-esophageal reflux disease without Joycelyn Littlejohn MD esophagitis 06/09/2019 Z12.31 Encounter for screening mammogram for Joycelyn Littlejohn MD malignant neoplasm of 06/09/2019 Z87.891 Personal history of nicotine dependence Joycelyn Littlejohn MD 06/09/2019 E55.9 Vitamin D deficiency, unspecified Joycelyn Littlejohn MD 06/09/2019 Z12.11 Encounter for screening for malignant Joycelyn Littlejohn MD neoplasm of colon 06/09/2019 Z80.0 Family history of malignant neoplasm of Joycelyn Littlejohn MD digestive organs 06/09/2019 Z68.27 Body mass index (BMI) 27.0-27.9, adult Joycelyn Littlejohn MD 06/04/2019 E78.2 Mixed hyperlipidemia Joycelyn Littlejohn MD 06/04/2019 E78.2 Mixed hyperlipidemia Schedule, Laboratory 06/04/2019 E03.9 Hypothyroidism, unspecified Joycelyn Littlejohn MD 06/04/2019 E03.9 Hypothyroidism, unspecified Schedule, Laboratory 06/04/2019 R73.09 Other abnormal glucose Joycelyn Littlejohn MD 06/04/2019 R73.09 Other abnormal glucose Schedule, Laboratory 06/04/2019 C34.11 Malignant neoplasm of upper lobe, RIGHT Joycelyn Littlejohn MD bronchus or lung 06/04/2019 C34.11 Malignant neoplasm of upper lobe, RIGHT Schedule, Laboratory bronchus or lung 06/04/2019 E78.2 Mixed hyperlipidemia [facility] 06/04/2019 E03.9 Hypothyroidism, unspecified [facility] 06/04/2019 R73.09 Other abnormal glucose [facility] 06/04/2019 C34.11 Malignant neoplasm of upper lobe, RIGHT [facility] bronchus or lung 06/03/2019 I48.91 Unspecified atrial fibrillation Joycelyn Littlejohn MD 06/03/2019 C34.11 Malignant neoplasm of upper lobe, RIGHT Joycelyn Littlejohn MD bronchus or lung 06/03/2019 I10 Essential (primary) hypertension Joycelyn Littlejohn MD 06/03/2019 K31.84 Gastroparesis Joycelyn Littlejohn MD 06/03/2019 E03.9 Hypothyroidism, unspecified Joycelyn Littlejohn MD 06/03/2019 Z68.28 Body mass index (BMI) 28.0-28.9, adult Joycelyn Littlejohn MD 05/27/2019 E03.9 Hypothyroidism, unspecified Dewey Real MD 05/27/2019 C34.11 Malignant neoplasm of upper lobe, RIGHT Joycelyn Littlejohn MD bronchus or lung 05/27/2019 I10 Essential (primary) hypertension Dewey Real MD 05/27/2019 I48.91 Unspecified atrial fibrillation Joycelyn Littlejohn MD 05/27/2019 I49.3 Ventricular premature depolarization Dewey Real MD 05/27/2019 I49.3 Ventricular premature depolarization Joycelyn Littlejohn MD 05/27/2019 R73.09 Other abnormal glucose Dewey Real MD 05/27/2019 I10 Essential (primary) hypertension Joycelyn Littlejohn MD 05/27/2019 J44.9 Chronic obstructive pulmonary disease, Joycelyn Littlejohn MD unspecified 05/27/2019 E03.9 Hypothyroidism, unspecified Joycelyn Littlejohn MD 05/27/2019 E78.2 Mixed hyperlipidemia Joycelyn Littlejohn MD 05/27/2019 K21.9 Gastro-esophageal reflux disease without Joycelyn Littlejohn MD esophagitis 05/27/2019 K31.84 Gastroparesis Joycelyn Littlejohn MD 05/27/2019 Z87.891 Personal history of nicotine dependence Joycelyn Littlejohn MD 05/27/2019 Z68.29 Body mass index (BMI) 29.0-29.9, adult Joycelyn Littlejohn MD 05/27/2019 E03.9 Hypothyroidism, unspecified Schedule, Laboratory 05/27/2019 I10 Essential (primary) hypertension Schedule, Laboratory 05/27/2019 I49.3 Ventricular premature depolarization Schedule, Laboratory 05/27/2019 R73.09 Other abnormal glucose Schedule, Laboratory 05/27/2019 E03.9 Hypothyroidism, unspecified [facility] 05/27/2019 I10 Essential (primary) hypertension [facility] 05/27/2019 I49.3 Ventricular premature depolarization [facility] 05/27/2019 R73.09 Other abnormal glucose [facility] Plan of Treatment Future Appointment(s):12/03/2019 9:00 am - Joycelyn Littlejohn MD at [facility]2019 - Joycelyn Littlejohn, MDM54.5 Low back painNew Medication:Prednisone 20 mg - 2 by mouth for 3 days, then 1 by mouth daily for 4 daysCyclobenzaprine HCL 5 mg - 1 by mouth up to 3 times daily caution sedationComments:acute back pain , symptoms suggest musculoskeletal, has had sciatica in pasttreat prednisone for acute pain, take with food, watch for stomach upset/insomnia/emotionmay try cyclobenzaprine for muscle spasms, best taken at night, cautioned risks for sedation and other side effects. ho lung cancer so consider xrays if not improving as expected within 2 weeksRecommend:May use plain tylenol, no more than 3000mg per day of tylenol. Avoid heavy lifting best you can and discussed squatting instead of bending to lift and do things Pt needs to call prn loss of bowel/bladder control, worsening pain/numbness/weakness, or any new concerns. watch/call for rash of shinglesFollow up:video visit oc15 in 1 mo fu new htn meds (best on email)I10 Essential (primary) hypertensionNew Medication: Hydrochlorothiazide 12.5 mg - 1 by mouth every day in the morningComments:bp continues to remain a little highadd on hctz 12.5mg take in morning with lisinoprilcontinue to check bpcall if bp goes below 110 or you get dizzyrecheck in 1 mo side effects include urine frequency,low potassium, will recheck at fuF43.20 Adjustment disorder, unspecifiedComments:condolences on the loss of your sonlet me know if you need fnbzmggrF19.28 Body mass index (BMI) 28.0-28.9, adultComments:healthy diet, regular exercise, reduced calories to help towards weight loss recommended Functional Status Description No Information Available Mental Status Description No Information Available Referrals Refer to Dr Reason for Referral Status Appt Date Iris Wilder MD due for repeat colonoscopy 08/2019 note, has Created had lung cancer Called and spoke to Kandy in the office who stated that they had not recieved the referral yet. she asked that I re-fax all the documents and the referral to the fax number listed on file. Faxed all necessary paperwork needed for the DrBeto to review and schedule the pt. KR 07/15/19 Called and spoke to Eduardo in the office who stated that they mailed out paperwork on 07/18 and are waiting for the pt to return the paperwork to make the apt. KR 07/23/19 Per office, they have not heard back from the patient yet to schedule 08/[address] waite office and she said they are sending out recall letters today and we can call back in early september to check on appt date/time. 08/11 Spoke with office and they said they sent her a recall letter in Jul, but have not heard back from her yet to schedule. I called and left her a message to please call and schedule and left number for her to call. 09/23 [facility] [address] [place] [address] [phone] Claudio Castelan MD 78 yo right upper lobectomy, for lung cancer, Closed with post afib, now converted to sinus rhythm after starting metoprolol , continues on amiodarone. Needs evaluation for afib burden to decide jail amiodarone and anticoage needs. Faxed all necessary paperwork needed for the DrBeto to review and schedule the pt. KR 06/04 Unable to reach the office. LMTCB and update on the referral. KR 12/23 Called and spoke to Alesha who verified that the pt is scheduled for 06/20/19 @ 820am. KR 06/10 [address] [facility] 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
--- OUTSIDE RECORDS SUMMARY | 2019-10-05 08:42 | XMS REPORT | Continuity of Care Document ---
:1940 External Reference #:[id number] Author Name Tomas Salazar DPM (transmitted by agent of provider Kathleen Russo) Address [address] [place] [id number] Care Team Providers Name Role Phone Joycelyn Littlejohn MD - Family Care Team Information Art Objects Salesperson [phone] Medicine Problems Active Problems Provider Date Benign essential hypertension Geovani Galarza MD Onset: 12/28/2015 Hyperlipidemia Geovani Galarza MD Onset: 12/28/2015 Disorder of cardiac function Estella Ly MSN, Onset: 06/20/2019 SOFTWARE ENGINEERING SPECIALIST Paroxysmal supraventricular Estella Ly, ALBERT, Onset: 06/20/2019 tachycardia SOFTWARE ENGINEERING SPECIALIST Syncope and collapse Estella Ly MSN, Onset: 06/20/2019 SOFTWARE ENGINEERING SPECIALIST Atrial fibrillation Estella Ly, ALBERT, Onset: 06/20/2019 SOFTWARE ENGINEERING SPECIALIST Social History Type Date Description Comments Sex Unknown Tobacco Use Start: Unknown End: Quit ETOH Use Denies alcohol use Recreational Drug Use Denies Drug Use Tobacco Use Start: Unknown End: Patient is a former 30 plus years Unknown smoker Smoking Status Reviewed: 09/03/19 Patient is a former 30 plus years smoker Exercise Type/Frequency Exercises regularly Allergies, Adverse Reactions, Alerts Description No Known Drug Allergies Medications Active Medications SIG Qnty Indications Ordering Provider Date Propafenone HCL ER 1 by mouth 180caps I48.91 Estella Ly 06/20/2019 325mg twice a day Scott, ALBERT, Caps ER 12HR SOFTWARE ENGINEERING SPECIALIST Simvastatin 1 by mouth Unknown 40mg Tablets every day Levothyroxine Sodium 1 by mouth Unknown 75mcg every day Tablets Omeprazole 1 by mouth Unknown 20mg Capsules DR every day Vitamin D3 1 by mouth Unknown 2000Unit every day Capsules Citracal Plus every day Unknown Tablets Domperidone 1 po qd Unknown Lisinopril 1 by mouth Unknown 40mg Tablets every day B12 Fast Dissolve 1 by mouth Unknown 5000mcg every day Tablets Dispers Eliquis 1 tab by mouth Unknown 5mg Tablets twice a day Immunizations Description No Information Available Vital Signs Date Vital Result Comment 09/03/2019 8:01am BP Systolic 182 mmHg BP Diastolic 93 mmHg Body Temperature 97.8 F Heart Rate 76 /min Height 62 inches 5'2" Weight 166.38 lb BMI (Body Mass Index) 30.4 kg/m2 BSA (Body Surface Area) 1.77 m2 [place] body weight in kilograms 50 kg O2 % BldC Oximetry 93 % 06/20/2019 8:14am BP Systolic Sitting Left Arm 138 mmHg BP Diastolic Sitting Left Arm 82 mmHg Heart Rate 74 /min Respiratory Rate 16 /min Height 62 inches 5'2" Weight 159.00 lb BMI (Body Mass Index) 29.1 kg/m2 BSA (Body Surface Area) 1.73 m2 [place] body weight in kilograms 50 kg O2 Saturation Level with Exercise 96 % Ejection Fraction 55% Results Test Acquired Date Facility Test Result H/L Range Note TSH Reflex 06/10/2019 [facility] Thyroid Stim 2.46 uIU/mL Normal 0.30-4.20 1 FT4 And/Or [address] Hormone FT3 [place] [address] [phone] Reflex add FT3? N Reflex add FT4? Y Laboratory 06/10/2019 [facility] Cortisol,Random 18.4 . 2 test finding [address] g/[place] [address] [phone] CBC 06/10/2019 [facility] White Blood Count 6.5 K/uL Normal 3.1-[address] 0.7 [place] [address] [phone] Red Blood Count 4.46 M/uL Normal 3.90-5.40 Hemoglobin 12.5 gm/dL Normal 11.6-15.8 Hematocrit 39.2 % Normal 36.0-46.1 Mean Cell Volume 87.9 fl Normal 80.9-99.0 Mean Corpuscular HGB 28.0 pg Normal 25.9-32.7 Mean Corpuscular HGB Conc 31.9 g/dL Normal 30.8-34.3 Platelet Count 368 K/uL High 155-360 Red Cell Distri Width SD 44.9 fl Normal 36-47 Red Cell Distri Width %CV 14.1 % Normal 11.7-14.4 Mean Platelet Volume 9.6 fl Normal 8.9-12.4 NRBC % 0.0 /100WBC < 10/ 100 WBC Basic Metabolic Panel 06/10/2019 [facility] Glucose 109 mg/dL High 74-106 [address] [place], [place] [id number] [phone] BUN 6 mg/dL Low 7-18 Creatinine 0.6 mg/dL Normal 0.6-1.3 Glom Filtration Rate, Estimate >60 mL/min >60 If >60 mL/min >60 4 BUN/Creat 10.0 ratio Sodium 134 mmol/L Low 136-145 Potassium 3.8 mmol/L 3.5-5.1 Chloride 100 mmol/L 98-107 Carbon Dioxide 29 mmol/L Normal 21-32 Anion Gap 5 mEq/L Low 8-16 Calcium 8.4 mg/dL Low 8.5-10.1 Nocturnal Oximetry 03/26/2019 [facility] Low Oximetry 86 % Low 93-98 5 [address] [place], [place] [id number] [phone] Fio2 21 Normal 21-100 Heart Rate 70 BPM Duration Of Study 455 MINUTES Total Time Below 88% 0.4 MINUTES Continuous Oximetry 03/25/2019 [facility] Oximetry 93 % Normal 93-98 [address] [place], [place] [address] [phone] Fio2 21 Normal 21-100 Heart Rate 53 BPM Patient Status RESTING 1 HYPONATREMIA, HYPOKALEMIA 2 Cortisol AM 6.2 - 19.4 Cortisol PM 2.3 - 11.9 Performed at: RN - [facility] [address] [id number] Plateman: Janae Jara MD, Phone: [phone] DR LITTLEJOHN SENT OVER SODIUM LOW, HIT HEAD 4 Note: Persistent reduction for 3 months or more in an eGFR <60 mL/min/1.73 m2 defines CKD. Patients with eGFR values >/=60 mL/min/1.73 m2 may also have CKD if evidence of persistent proteinuria is present. The original MDRD equation for estimated GFR is not valid for patients less than 18 years of age. Additional information may be found at www.kdo[facility].org. 5 I49.3 VENTRICULAR PREMATURE DEPOLARIZATION,I49.9 Procedures Date Code Description Status 09/03/2019 86392 Debridement Nails Any Method 1-5 Completed 06/24/2019 55570 EKG-Tracing And Report Completed 06/20/2019 16190 EKG-Tracing And Report Completed 06/04/2019 82739 Debridement Nails Any Method 1-5 Completed 03/25/2019 69939 Echocardiogram Complete Completed 03/18/2019 90452 Debridement Nails Any Method 1-5 Completed 03/13/2019 62603 EKG-Tracing And Report Completed Medical Devices Description No Information Available Encounters Type Date Location Provider Dx Diagnosis Office Visit 06/24/2019 Cardiology Office Estella Ly I48.91 Unspecified atrial 11:40a ALBERT Chavez, fibrillation SOFTWARE ENGINEERING SPECIALIST R55 Syncope and collapse Office Visit 06/20/2019 Cardiology Estella Ly I48.91 Unspecified atrial 8:20a Office ALBERT Chavez, fibrillation SOFTWARE ENGINEERING SPECIALIST R55 Syncope and collapse I47.1 Supraventricular tachycardia I51.89 Other ill-defined heart diseases I35.0 Nonrheumatic aortic (valve) stenosis Office Visit 03/18/2019 8:40a Podiatry Office Tomas Salazar, B35.1 Tinea unguium DPM L60.3 Nail dystrophy M79.675 Pain in left toe(s) M79.674 Pain in right toe(s) S90.851A Superficial foreign body, right foot, initial encounter M20.12 Hallux valgus (acquired), left foot M20.11 Hallux valgus (acquired), right foot M20.5x2 Other deformities of toe(s) (acquired), left foot M20.5x1 Other deformities of toe(s) (acquired), right foot M20.41 Other hammer toe(s) (acquired), right foot M20.42 Other hammer toe(s) (acquired), left foot Office Visit 03/13/2019 Cardiology Claudio Castelan I49.3 Ventricular 11:20a Pavithra Castaneda M.D., [facility] premature depolarization Assessments Date Code Description Provider 09/03/2019 B35.1 Tinea unguium Tomas Salazar, DPM 09/03/2019 L60.3 Nail dystrophy Tomas Salazar, DPM 09/03/2019 M79.674 Pain in right toe(s) Tomas Salazar, DPM 09/03/2019 M79.675 Pain in left toe(s) Tomas Salazar, DPM 09/03/2019 M20.12 Hallux valgus (acquired), left foot Tomas Salazar, DPM 09/03/2019 M20.11 Hallux valgus (acquired), right foot Tomas Salazar, DPM 09/03/2019 M20.5x2 Other deformities of toe(s) Tomas Salazar DPM (acquired), left foot 09/03/2019 M20.5x1 Other deformities of toe(s) Tomas Salazar DPM (acquired), right foot 09/03/2019 M20.42 Other hammer toe(s) (acquired), left Tomas Salazar, DPM foot 09/03/2019 M20.41 Other hammer toe(s) (acquired), right Tomas Salazar, DPM foot 08/29/2019 I48.91 Unspecified atrial fibrillation Estella Ly MSN, [facility] 08/29/2019 R55 Syncope and collapse Estella yL MSN, [facility] 08/29/2019 I35.0 Nonrheumatic aortic (valve) stenosis Estella Ly MSN, [facility] 08/29/2019 I51.89 Other ill-defined heart diseases Estella Ly MSN, [facility] 06/24/2019 I48.91 Unspecified atrial fibrillation Estella Ly MSN, [facility] 06/24/2019 R55 Syncope and collapse Estella Ly MSN, [facility] 06/20/2019 I48.91 Unspecified atrial fibrillation Estella Ly MSN, [facility] 06/20/2019 R55 Syncope and collapse Estella Ly MSN, [facility] 06/20/2019 I47.1 Supraventricular tachycardia Estella Ly, MSN, [facility] 06/20/2019 I51.89 Other ill-defined heart diseases Estella Ly, MSN, [facility] 06/20/2019 I35.0 Nonrheumatic aortic (valve) stenosis Estella Ly , MSN, [facility] 06/10/2019 R53.1 Weakness Diogo Godinez M.D. 06/10/2019 E87.1 Hypo-osmolality and hyponatremia Diogo Godinez M.D. 06/10/2019 E87.6 Hypokalemia Diogo Godinez M.D. 06/10/2019 R55 Syncope and collapse Diogo Godinez M.D. 06/09/2019 R53.1 Weakness Virginia Sampson M.D. 06/09/2019 E87.1 Hypo-osmolality and hyponatremia Virginia Sampson M.D. 06/09/2019 E87.6 Hypokalemia Virginia Sampson M.D. 06/09/2019 R55 Syncope and collapse Virginia Sampson M.D. 06/04/2019 B35.1 Tinea unguium Tomas Salazar DPM 06/04/2019 L60.3 Nail dystrophy Tomas Salazar DPM 06/04/2019 M79.675 Pain in left toe(s) Tomas Salazar DPM 06/04/2019 M79.674 Pain in right toe(s) Tomas Salazar DPM 06/04/2019 M20.12 Hallux valgus (acquired), left foot Tomas Salazar DPM 06/04/2019 M20.11 Hallux valgus (acquired), right foot Tomas Salazar DPM 06/04/2019 M20.5x2 Other deformities of toe(s) Tomas aSlazar DPM (acquired), left foot 06/04/2019 M20.5x1 Other deformities of toe(s) Tomas Salazar DPM (acquired), right foot 06/04/2019 M20.41 Other hammer toe(s) (acquired), right Tomas Salazar DPM foot 06/04/2019 M20.42 Other hammer toe(s) (acquired), left Tomas Salazar DPM foot 03/25/2019 I49.3 Ventricular premature depolarization George Redd MD 03/25/2019 I49.9 Cardiac arrhythmia, unspecified George Redd MD 03/18/2019 B35.1 Tinea unguium Tomas Salazar TARSHATere 03/18/2019 L60.3 Nail dystrophy Tomas Salazar TARSHATere 03/18/2019 M79.675 Pain in left toe(s) Tomas Salazar TARSHATere 03/18/2019 M79.674 Pain in right toe(s) Tomas Salazar TARSHATere 03/18/2019 S90.851A Superficial foreign body, right foot, Tomas Salazar DPM initial encounter 03/18/2019 M20.12 Hallux valgus (acquired), left foot Tomas Salazar TARSHATere 03/18/2019 M20.11 Hallux valgus (acquired), right foot Tomas Salazar TARSHAeTre 03/18/2019 M20.5x2 Other deformities of toe(s) Tomas Salazar DPM (acquired), left foot 03/18/2019 M20.5x1 Other deformities of toe(s) Tomas Salazar DPM (acquired), right foot 03/18/2019 M20.41 Other hammer toe(s) (acquired), right Tomas Salazar DPM foot 03/18/2019 M20.42 Other hammer toe(s) (acquired), left Tomas Salazar DPM foot 03/13/2019 I49.3 Ventricular premature depolarization Claudio Castelan M.D., [facility] Plan of Treatment Future Appointment(s):09/10/2019 8:00 am - Estella Ly, MSN, SOFTWARE ENGINEERING SPECIALIST at Cardiology [id number]/03/2019 - Tomas SalazarTARSHAMB35.1 Tinea unguiumComments: All the nails were trimmed in length with a sterile nail nipper. The leading edges were debrided with a nail bur and electric podiatry drill. The debris under the edges of the great toenails was debrided with a sterile curet.The thick fungal nail (S) 1 bilaterally was (were) reduced to a more normalthickness with a nail bur and podiatry drill. Mycotic debris was debrided from around and under thenail edges with a curette.Follow up:Follow-up in 2 months for mycotic nail careL60.3 Nail dystrophyComments:The thick dystrophic nail (S) 2 left and 2, 3 right was (were) filed down to a more normal thicknesswith a nail bur and podiatry drill.M79.674 Pain in right toe(s) M79.675 Pain in left toe(s)M20.12 Hallux valgus (acquired), left footM20.11 Hallux valgus (acquired), right footM20.5x2 Other deformities of toe(s) ( acquired), left footM20.5x1 Other deformities of toe(s) (acquired), right footM20.42 Other hammer toe(s) (acquired), left footM20.41 Other hammer toe(s) ( acquired), right foot Functional Status Description No Information Available Mental Status Description No Information Available Referrals Description No Information Available
--- OUTSIDE RECORDS SUMMARY | 2019-10-05 08:42 | XMS REPORT | Continuity of Care Document ---
:1940 External Reference #:[id number] Author Name Joycelyn Littlejohn MD (transmitted by agent of provider Candida LEON) Address [address] [place] [id number] Care Team Providers Name Role Phone Khadar Larsenkamaljit - Gastroenterology Care Team Information Global Compensation Director [phone] Thoracic Oncology Program (TOP) Care Team Information Global Compensation Director [phone] Iris Wilder MD - Colon & Rectal Care Team Information Global Compensation Director [phone] Surgery Claudio Castelan MD - Cardiovascular Care Team Information Global Compensation Director [phone] Disease Feliberto Villagran MD Care Team Information Global Compensation Director [phone] [place], [place] Care Team Information Global Compensation Director Region Problems Active Problems Provider Date Essential [...] Medications SIG Qnty Indications Ordering Date Provider Propafenone HCL ER 1 po daily I48.91 Ly Estella 06/19/2019 Scott, N.P. 325mg Caps ER 12HR Eliquis Take One Tablet By 180tabs I48.91 [place], 06/03/2019 5mg Tablets Mouth Twice A Day MD Joycelyn Vitamin B-12 1 by mouth, daily 90tabs K31.84 [place], 06/17/2018 500mcg with meal with MD Joycelyn Tablets dinner with proteintaking 1/2 of 500mcg Lisinopril 1 by mouth every day 90tabs I10 [place], 06/17/2018 20mg in the morning MD Joycelyn Tablets Omeprazole 1 by mouth daily as 90caps K21.9 [place], 05/08/2018 20mg needed, 30min before MD Joycelyn Capsules DR a meal K31.84 Simvastatin take one tablet 90tabs E78.2 Joycelyn Littlejohn MD 40mg Tablets by mouth every day Levothyroxine Sodium 1 by mouth every 90tabs E03.9 Joycelyn Littlejohn MD 75mcg day first thing Tablets in morning, no food or meds for 30min Domperidone 1 PO tid K31.84 Erica Larsen 10mg K21.9 Vitamin D3 1 by mouth daily 90caps E55.9 Unknown 2000Unit Capsules after dinner with meat fat or oil Citracal +D3 1 chewtab daily. Unknown [phone]-mg-Unit Chewtabs Ondansetron HCL Take One Tablet By K31.84 Erica Larsen 4mg Tablets Mouth Every Day K21.9 History Medications Naproxen Sodium 1 by mouth q12 Unknown 06/05/2019 - hours Due To Stop 06/18/2019 220mg Capsules In 2 Day S Diclofenac Sodium apply to the C34.11 Feliberto Villagran, 06/02/2019 - affected area 06/18/2019 1% Gel four times a day as needed Amiodarone HCL 1 po daily per 150tabs I49.3 Feliberto Villagran, 05/25/2019 - 06/10 [facility] 06/18/2019 200mg Tablets dc I48.91 Enoxaparin Sodium I48.91 Unknown 05/22/2019 - 06/05/2019 40mg/0.4ML Solution C34.11 Immunizations CPT Code Status Date Vaccine Reaction Lot # [id number] Given 03/03/2019 Flu Vaccine NOS GIVEN AT PHARMACY 52505 Given 12/17/2018 Pneumococcal 23 Immunization [id number] Adult Or Immunosuppressed Patient Q2039 Given 03/27/2018 [place] [address] Given 11/19/2016 Zoster (Zostavax) nysiis 22963 Given 06/18/2016 Prevnar 13 Pneumococal PER PT WAS GIVEN AT Conjugate Vaccine [facility] Q2039 Given 02/24/2016 Flu Vaccine NOS nysiis 74725 Given 12/28/2010 Tetanus And Diptheria Toxoid 7 Years And Older Preserv Free 30903 Given 11/18/2008 Pneumococcal 23 Immunization [facility] Adult Or Immunosuppressed Patient 16241 Refused 06/03/2019 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 (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) 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 Vaccine HZV, Recombinant, Subunit, Adj Q2039 Refused 01/29/2019 Flu Vaccine NOS will get in fall Refused 05/08/2018 Shingrix (Shingles) Zoster WILL GET IN 2021 Vaccine HZV, Recombinant, Subunit, Adj 47935 Refused 05/08/2018 Tdap (Adacel) Ages 7 And Above WILL GET AT PHARMACY Only Vital Signs Date Vital Result Comment 09/12/2019 10:58am Body Temperature 98.4 F Weight 160.00 lb Heart Rate 77 /min BP Systolic 140 mmHg BP Diastolic 73 mmHg Height 63 inches 5'3" BMI (Body Mass Index) 28.3 kg/m2 06/19/2019 9:55am Body Temperature 97.3 F Weight 161.00 lb Heart Rate 74 /min BP Systolic 168 mmHg BP Diastolic 102 mmHg Respiratory Rate 16 /min Height 63 inches 5'3" O2 % BldC Oximetry 97 % Ra BMI (Body Mass Index) 28.5 kg/m2 Results Test Acquired Date Facility Test Result H/L Range Note Laboratory test 06/19/2019 [facility] Osmolality,S 284 mosm/kg (280-300) 1 , 2 finding rodrick Comprehensive Met 06/19/2019 [facility] Sodium 134 mmol/L Low 135-146 3 Panel-[facility] Potassium 4.3 mmol/L 3.5-5.2 Chloride# 96 mmol/L Low 97-110 4 Carbon Dioxide 32 mmol/L 24-34 Calcium 9.0 mg/dL 8.5-10.5 5 Glucose 94 mg/dL 70-105 BUN 15 mg/dL 6-26 Creatinine 0.6 mg/dL 0.5-1.4 Total Protein 6.1 g/dL 6.0-8.0 Albumin 4.0 g/dL 3.6-4.9 Globulin 2.1 g/dL 2.0-3.5 A/G Ratio 1.9 Ratio 1.0-2.2 Total Bilirubin 0.4 mg/dL 0.1-1.3 Alkaline Phosphatase 96 U/L 24-140 Alt 24 U/L 3-42 Ast 15 U/L 8-42 Anion Gap 6 mmol/L 5-15 6 Female Egfr 87 >60 7 Male Egfr 97 >60 8 Laboratory test finding 06/09/2019 [facility] CK 85 U/L Normal 26-192 9 (315)- - Troponin-I < 0.015 ng/mL 10 Comprehensive Metabolic 06/09/2019 [facility] Glucose 128 mg/dL High 74-106 Panel (315)- - BUN 9 mg/dL Normal 7-18 Creatinine 0.9 mg/dL Normal 0.6-1.3 Glom Filtration Rate, Estimate >60 mL/min >60 If >60 mL/min >60 11 BUN/Creat 10.0 ratio Sodium 126 mmol/L Low [...] 118 U/L High 45-117 CBS W/Automated 06/09/2019 [facility] White Blood 7.4 K/ uL [...] 40.4-72.8 Lymph % 17.1 % Low 20.0-42.0 [place] % 3.7 % Low 4.3-13.2 Eo% 1.6 % Normal 0.0-6.6 Bas% 0.5 % Normal 0.0-1.1 Immature Grans 0.4 % Normal 0.0-5.0 NRBC % 0.0 /100WBC < 10/ 100 WBC Neut# 5.67 K/uL Normal 1.8-7.0 Lymph # 1.26 K/uL Normal 1.0-4.0 [place] # 0.27 K/uL Low 0.3-0.9 Eos # 0.12 K/uL Normal 0.0-0.5 Baso # 0.04 K/uL Normal 0.0-0.1 Immature Grans Absolute 0.03 K/uL NRBC # 0.00 K/uL Urinalysis With 06/09/2019 [facility] Urine Color Light- Yellow Yellow Microscopic (315)- - Urine Clarity Clear Clear Urine Glucose - Dipstick NEGATIVE mg/dL Negative Urine Bilirubin - Dipstick NEGATIVE Negative Urine Ketone NEGATIVE mg/dL Negative Urine Specific [place] 1.006 Low 1.010-1.030 Urine Blood NEGATIVE Negative Urine PH 6.5 Normal 6.5-7.5 Urine Protein - Dipstick NEGATIVE mg/dL Negative Urine Urobilinogen - Dipstick < 2.0 mg/dL < 2.0 Urine Nitrite - Dipstick NEGATIVE Negative Urine Leuk Esterase TRACE Abnormal Negative Urine RBC 0-2 rbc/hpf 0-2 Urine WBC 3-5 wbc/hpf 0-5 Urine Epithelial Cells MANY /lpf None Seen Source: URINE, CLEAN CAT <SEE NOTE> 12 Comprehensive Met Panel-[facility] 06/04/2019 [facility] Sodium 131 mmol/L Low 135 -146 13, 14 Potassium 3.7 mmol/L 3.5-5.2 Chloride# 93 mmol/L Low 97-110 15 Carbon Dioxide 28 mmol/L 24-34 Calcium 8.7 mg/dL 8.5-10.5 16 Glucose 121 mg/dL High 70-105 BUN 24 mg/dL 6-26 Creatinine 0.8 mg/dL 0.5-1.4 Total Protein 5.9 g/dL Low 6.0-8.0 Albumin 3.6 g/dL 3.6-4.9 Globulin 2.3 g/dL 2.0-3.5 A/G Ratio 1.6 Ratio 1.0-2.2 Total Bilirubin 0.5 mg/dL 0.1-1.3 Alkaline Phosphatase 88 U/L 24-140 Alt 14 U/L 3-42 Ast 13 U/L 8-42 Anion Gap 10 mmol/L 5-15 17 Female Egfr 66 >60 18 Male Egfr 84 >60 19 Laboratory test finding 06/04/2019 [facility] CPK 34 U/L 12-199 Lipid 06/04/2019 [facility] Cholesterol 188 mg/dL 50-199 Triglycerides 94 mg/dL 30-200 HDL 81 mg/dL 35-85 20 Chol/ HDL Ratio 2.3 ratio Low 3.7-5.6 VLDL 19 mg/dL 2-29 LDL (Calc) 88 mg/dL 20-99 21 Laboratory test finding 06/04/2019 [facility] TSH 3.37 uIU/mL 0.35-4.94 Glucose 121 mg/dL High 70-105 Hemoglobin A1c 06/04/2019 [facility] Hemoglobin A1c 6.1 % High 4.1-5.9 Estimated Average Glucose Calc 128 mg/dL 71-140 CBC with Auto Diff-[facility]cmg 06/04/2019 [facility] WBC 9.4 K/uL 4.1-11.0 22 RBC 4.24 M/uL 4.00-5.40 23 Hemoglobin 12.3 gm/dL 12.0-16.0 24 Hematocrit 36.5 % 36.0-47.0 25 MCV 86.0 fL 80.0-95.0 26 MCH 29.0 pg 27.0-32.0 27 MCHC 33.7 g/dL 32.0-36.0 28 RDW 13.9 % 10.5-14.5 29 PLT Count 342 K/ul 150-400 30 MPV 7.2 FL 7.1-10.7 Neutrophil 83.5 % High 35.0-75.0 31 Lymphocyte 9.5 % Low 16.0-52.0 32 Monocyte 6.5 % 0.0-8.0 33 Eosinophil 0.2 % 0.0-5.0 Basophil 0.3 % 0.0-4.0 Abs Neutrophils 7.9 K/uL High 1.8-7.7 34 Abs Lymphocytes 0.9 K/uL Low 1.2-4.8 35 Abs Monocytes 0.6 K/uL 0.0-0.8 36 Abs Eosinophils 0.0 K/uL 0.0-0.5 37 Abs Basophils 0.0 K/uL 0.0-0.2 38 Laboratory test finding 06/04/2019 [facility] Free T4 1.42 ng/dL 0.70-1.48 Laboratory test finding 05/27/2019 [facility] TSH 4.19 uIU/mL 0.35-4.94 39 Free T4 1.37 ng/dL 0.70-1.48 CBC with Auto Diff-fcmg 05/27/2019 [facility] WBC 7.3 K/uL 4.1-11.0 40 RBC 4.09 M/uL 4.00-5.40 41 Hemoglobin 12.0 gm/dL 12.0-16.0 42 Hematocrit 35.7 % Low 36.0-47.0 43 MCV 87.4 fL 80.0-95.0 44 MCH 29.3 pg 27.0-32.0 45 MCHC 33.6 g/dL 32.0-36.0 46 RDW 14.1 % 10.5-14.5 47 PLT Count 259 K/ul 150-400 48 MPV 8.1 FL 7.1-10.7 Neutrophil 75.5 % High 35.0-75.0 49 Lymphocyte 13.9 % Low 16.0-52.0 50 Monocyte 9.5 % High 0.0-8.0 51 Eosinophil 0.5 % 0.0-5.0 Basophil 0.6 % 0.0-4.0 Abs Neutrophils 5.5 K/uL 1.8-7.7 52 Abs Lymphocytes 1.0 K/uL Low 1.2-4.8 53 Abs Monocytes 0.7 K/uL 0.0-0.8 54 Abs Eosinophils 0.0 K/uL 0.0-0.5 55 Abs Basophils 0.0 K/uL 0.0-0.2 56 Comprehensive Met Panel-[facility] 05/27/2019 [facility] Sodium 138 mmol/L 135- 146 57 Potassium 3.8 mmol/L 3.5-5.2 Chloride# 98 mmol/L 97-110 58 Carbon Dioxide 33 mmol/L 24-34 Calcium 8.5 mg/dL 8.5-10.5 59 Glucose 87 mg/dL 70-105 BUN 7 mg/dL 6-26 Creatinine 0.5 mg/dL 0.5-1.4 Total Protein 5.7 g/dL Low 6.0-8.0 Albumin 3.4 g/dL Low 3.6-4.9 Globulin 2.3 g/dL 2.0-3.5 A/G Ratio 1.5 Ratio 1.0-2.2 Total Bilirubin 0.6 mg/dL 0.1-1.3 Alkaline Phosphatase 69 U/L 24-140 Alt 14 U/L 3-42 Ast 16 U/L 8-42 Anion Gap 7 mmol/L 5-15 60 Female Egfr 92 >60 61 Male Egfr 103 >60 62 Laboratory test finding 05/27/2019 [facility] Magnesium 1.7 mg/dL 1.5-2.7 Hemoglobin A1c 05/27/2019 [facility] Hemoglobin A1c 6.1 % High 4.1-5.9 Estimated Average Glucose Calc 128 mg/dL 71-140 1 today letter 2 PERFORMED AT [address] [place] [id number] Unless otherwise specified, testing performed by [facility] [address] [address] 3 Updated reference range on new analyzer 4 Updated reference range on new analyzer 5 Updated reference range 10-16-2018 6 Updated Reference Range 7 Concerning GFR Guidelines for Americans: Normal function or mild renal disease, if clinically at risk: >/= 60 mL/min Moderately decreased: 30-59 Severely decreased: 15-29 Renal failure: <15 There is reduced accuracy above 60ml/min/1.73 m squared, but the numeric value may be clinically useful in the near 60 range 8 Concerning GFR Guidelines: Normal function or mild [...] drugs that are excreted by the kidneys. 9 DR LITTLEJOHN SENT OVER SODIUM LOW, HIT HEAD 10 0.0 - 0.045 ng/mL: Normal 0.046 - 0.5 ng/mL: Suggestive 0.6 - 1.5 ng/mL: Consistent 11 Note: Persistent reduction for 3 months or more in an eGFR <60 mL/min/1.73 m2 defines CKD. Patients with eGFR values >/=60 mL/min/1.73 m2 may also have CKD if evidence of persistent proteinuria is present. The original MDRD equation for estimated GFR is not valid for patients less than 18 years of age. Additional information may be found at www.kdoqi.org. 12 URINE, CLEAN CATCH 13 before visit 05/2020 14 Updated reference range on new analyzer 15 Updated reference range on new analyzer 16 Updated reference range 10-16-2018 17 Updated Reference Range 18 Concerning GFR Guidelines for Americans: Normal function or mild renal disease, if clinically at risk: >/= 60 mL/min Moderately decreased: 30-59 Severely decreased: 15-29 Renal failure: <15 There is reduced accuracy above 60ml/min/1.73 m squared, but the numeric value may be clinically useful in the near 60 range 19 Concerning GFR Guidelines: Normal function or mild [...] drugs that are excreted by the kidneys. 20 Per NCEP ATP III Guidelines: Results lower than 40 mg/dL are suggestive of increased risk for coronary artery disease. Results > or = to 60 mg/dL are considered a negative risk factor. 21 Per NCEP ATP III Guidelines: Normal Population <130 Patients with medical conditions: CHD/DM Optimal: <100 Borderline high: 130-159 High: 160-189 Very high: >189 22 Updated Reference Range 04/2019 23 Updated Reference Range 04/2019 24 Updated Reference Range 04/2019 25 Updated Reference Range 04/2019 26 Updated Reference Range 04/2019 27 Updated Reference Range 04/2019 28 Updated Reference range 04/2019 29 Updated Reference range 04/2019 30 Updated Reference Range 04/2019 31 Updated Reference Range 04/2019 32 Updated Reference Range 04/2019 33 Updated Reference Range 04/2019 34 Updated Reference Range 04/2019 35 Updated Reference Range 04/2019 36 Updated Reference Range 04/2019 37 Updated Reference Range 04/2019 38 Updated Reference Range 04/2019 39 today ov fu 40 Updated Reference Range 04/2019 41 Updated Reference Range 04/2019 42 Updated Reference Range 04/2019 43 Updated Reference Range 04/2019 44 Updated Reference Range 04/2019 45 Updated Reference Range 04/2019 46 Updated Reference range 04/2019 47 Updated Reference range 04/2019 48 Updated Reference Range 04/2019 49 Updated Reference Range 04/2019 50 Updated Reference Range 04/2019 51 Updated Reference Range 04/2019 52 Updated Reference Range 04/2019 53 Updated Reference Range 04/2019 54 Updated Reference Range 04/2019 55 Updated Reference Range 04/2019 56 Updated Reference Range 04/2019 57 Updated reference range on new analyzer 58 Updated reference range on new analyzer 59 Updated reference range 10-16-2018 60 Updated Reference Range 61 Concerning GFR Guidelines for Americans: Normal function or mild renal disease, if clinically at risk: >/= 60 mL/min Moderately decreased: 30-59 Severely decreased: 15-29 Renal failure: <15 There is reduced accuracy above 60ml/min/1.73 m squared, but the numeric value may be clinically useful in the near 60 range 62 Concerning GFR Guidelines: Normal function or mild [...] kidneys. Procedures Date Code Description Status 06/19/2019 30032 Measure Blood Oxygen Level Single Determination Completed 06/19/2019 26261 Electrocardiogram Complete Completed 06/09/2019 95014 Measure Blood Oxygen Level Single Determination Completed 06/03/2019 00814 Electrocardiogram Complete Completed 05/27/2019 78522 Measure Blood Oxygen Level Single Determination Completed 05/27/2019 43495 Rhythm ECG W/Interpretation & Report Completed 05/27/2019 57610 Electrocardiogram Complete Completed 04/08/2018 17284420 Mammogram Completed 09/01/2014 65299769 Colonoscopy Completed Medical Devices Description No Information Available Encounters Type Date Location Provider Dx Diagnosis Office Visit 09/12/2019 [facility] Joycelyn Littlejohn MD I10 Essential (primary) 10:45a hypertension E03.9 Hypothyroidism, unspecified E78.2 Mixed hyperlipidemia E87.1 Hypo-osmolality and hyponatremia E87.6 Hypokalemia C34.11 Malignant neoplasm of upper lobe, RIGHT bronchus or lung J44.9 Chronic obstructive pulmonary disease, unspecified K21.9 Gastro-esophageal reflux disease without esophagitis K31.84 Gastroparesis Z87.891 Personal history of nicotine dependence E55.9 Vitamin D deficiency, unspecified I48.91 Unspecified atrial fibrillation 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 Z71.89 Other specified counseling Z68.28 Body mass index (BMI) 28.0-28.9, adult Office Visit 06/09/2019 3:30p [facility] Joycelyn Littlejohn MD Z00.01 Encounter for general [...] (BMI) 27.0-27.9, adult Office Visit 06/03/2019 4:15p [facility] Joycelyn Littlejohn MD I48.91 Unspecified atrial fibrillation C34.11 Malignant neoplasm of upper lobe, RIGHT bronchus or lung I10 Essential (primary) hypertension K31.84 Gastroparesis E03.9 Hypothyroidism, unspecified Z68.28 Body mass index (BMI) 28.0-28.9, adult Assessments Date Code Description Provider 09/12/2019 I10 Essential (primary) hypertension Joycelyn Littlejohn MD 09/12/2019 E03.9 Hypothyroidism, unspecified Joycelyn Littlejohn MD 09/12/2019 E78.2 Mixed hyperlipidemia Joycelyn Littlejohn MD 09/12/2019 E87.1 Hypo-osmolality and hyponatremia Joycelyn Littlejohn MD 09/12/2019 E87.6 Hypokalemia Joycelyn Littlejohn [...] atrial fibrillation Joycelyn Littlejohn MD 09/12/2019 Z79.01 alf (current) use of anticoagulants Joycelyn Littlejohn MD [...] Schedule, Laboratory 06/19/2019 E87.1 Hypo-osmolality and hyponatremia [facility] 06/19/2019 E87.6 Hypokalemia [facility] 06/19/2019 I10 Essential (primary) hypertension [facility] 06/09/2019 Z00.01 Encounter for general adult [...] bronchus or lung 06/04/2019 E78.2 Mixed hyperlipidemia [facility] 06/04/2019 E03.9 Hypothyroidism, unspecified [facility] 06/04/2019 R73.09 Other abnormal glucose [facility] 06/04/2019 C34.11 Malignant neoplasm of upper lobe, RIGHT [facility] bronchus or lung 06/03/2019 I48.91 Unspecified atrial fibrillation oJycelyn Littlejohn MD 06/03/2019 C34.11 Malignant neoplasm of [...] Littlejohn MD 05/27/2019 I49.3 Ventricular premature depolarization Deewy Real MD 05/27/2019 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 Plan of Treatment Future Appointment(s):12/03/2019 9:00 am - Joycelyn Littlejohn MD at [facility]2019 8:05 am - Schedule, Laboratory at [facility]09/12/2019 - Joycelyn Littlejohn MDI10 Essential (primary) hypertensionComments:Htn--BPs appear stable and in good control, reminded goal of BP < 150/90 given age and conditions. Continue current meds, please call for medication side effects such as cough, rash or any concerns. Encouraged diet modified in fat and no added salt. Limit alcohol to < 1 per day. Encouraged regular exercise of 30 min most days per week. Encouraged pt to continue to monitor BP and call if > 140/90 on a regular basis. 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 Continue replacement medication. Reviewed side effects. Please call for concerns about over treatment or under treatment, with symptoms such as fatigue, change in bowel habits/skin/hair/nails, temperature intolerance , weight changes, or other concerns. Take meds in morning, first thing on arising, no food or drink or other meds for 04mybQ29.2 Mixed hyperlipidemiaNew Labs:Lipid, Scheduled: 09/15/19Comprehensive Metabolic-RL, Scheduled: CPK, Scheduled: 09/15/19Comments:high chollikely high risk, per new guidlelines may contiue statins she has no evidence of cardiovascular disease. continue current meds. monitor for side effects of muscle aches or crampswe watch for liver effects with labsPlease call if you have any concerns.advised per new guidelines, to stop aspirin as risk for bleeding is higher in older patients. For lifestyle, we also recommend: Low fat ( [id number] per day), low chol diet ( under 300mg per day chol)focus on lean meat, nonfat 1% dairy, increased veg and fruit, whole grains weight lossexercise build to at least 30min per day. Reviewed signs and symptoms of cardiovascular disease.E87.1 Hypo- osmolality and hyponatremiaNew Labs:Osmolality,Serum-RL, Scheduled: Vitamin B12, Scheduled: 09/15/19Magnesium, Scheduled: 09/15/19CBC with Auto Diff-[facility]cmg, Scheduled: 09/15/19Comments:stable on recent labsE87.6 HypokalemiaComments:stable on last labs .11 Malignant neoplasm of upper lobe, RIGHT bronchus or lungComments:right upper lobe lung resection on with Dr Laurie russo with surgJ44.9 Chronic obstructive pulmonary disease, unspecifiedComments:mildpt now seeing financial sales advisor Dr Ng. no inhalers at this time.K21.9 Gastro-esophageal reflux disease without esophagitisNew Labs: Vitamin B12, Scheduled: 09/15/19Magnesium, Scheduled: 09/15/19Comments:GERD/ esophagitis--Symptoms moderately well controlled on current acid sosa therapy. Reminded pt we need to control the symptoms as those symptoms would be signs of gastric acid eroding on the esophagus, which can lead to complications. Call if has heartburn more than 2 - 3 times per week. Pt should take meds to control any break through symptoms. Please be sure to take your acid sosa 30minbefore a meal. Cautioned risks for malabsorption certain vits , c diff colitis diarrhea and possiblelong term risks for dementia, cardiovascular disease kidney disease, use the lowest effective dose per pt egd with Dr Larsen. She has to take this daily or has symptoms. Suggest dropping one day a week to try a little mpjejH41.84 GastroparesisComments:gastroparesis - -a disease where the muscles of the gastrointestinal tract don't move foods through as quickly as they are supposed. There are many causes. Recommend consuming small meals multiple timesper day. Examples, instead of 3 main meals , consume 200 -300 calories, every 3-4 hours intead, targeting 6 small meals a day. Be sure to prime the system with drinking water before you eat, and then at least 16 oz of liquid with those meals. care with dr Nieves87.891 Personal history of nicotine dependenceComments:Former smoker, not a candidate for lung cancer screening based on history Seek care for persistent cough, unexpected weight loss/fatigue, coughing up blood as these can be signs of lung ghnqxxY93.9 Vitamin D deficiency, unspecifiedNew Labs:Vit D 25Oh, Scheduled: I48.91 Unspecified atrial fibrillationComments:atrial fibrillation--Rate controlled, continue anticoagulation to help reduce risk of stroke. Please call for chest pain, shortness of breath, palpitations, swelling or excessive bleeding, or any concerns. continues on Eliquis for anticoagulation. monitor for gi bleeding. there is increased risk for gi bleeding with aspirin. watch for abd pain, black or bloody stools. management also with cardiology Dr Spencer79.01 superintendent container terminal (current) use of mfpvoujosggdpjS32.89 Other specified counselingComments:COVID19 counseling Age over 70, higher risk age groupRecommend isolation, avoiding groups. Have someone get groceries, wipe them down. Call if ill with sore throat, cough, body aches, etc.Z68.28 Body mass index (BMI) 28.0-28.9, adultComments:healthy diet, regular exercise, reduced calories to help towards weight loss recommended Functional Status Description No Information Available Mental Status Description No Information Available Referrals Refer to Reason for Referral Status Appt Date Iris [...] back in early september to check on arrt date/time. 08/[address] [place] [address] [phone] Claudio Castelan MD 78 yo right upper lobectomy, for lung cancer, Closed with post afib, now converted to sinus rhythm after starting metoprolol , continues on amiodarone. 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 Faxed all necessary paperwork needed for the DrBeto to review and schedule the pt. KR 06/04 Unable to reach the office. LMTCB and update on the referral. RAUL 06/09 Called and spoke to Alesha who verified that the pt is scheduled for 06/20/19 @ 820am. RAUL 06/10 [address] [facility] 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 [address] [place] [address] [phone]
--- OUTSIDE RECORDS SUMMARY | 2019-10-05 08:42 | XMS REPORT | Continuity of Care Document ---
:1940 External Reference #:[id number] Author Name Schedule, Laboratory (transmitted by agent of provider Candida LEON) Address [address] [address] Care Team Providers Name Role Phone Valerie Larsenalberto - Gastroenterology Care Team Information Market Editor Thoracic Oncology Program (TOP) Care Team Information Market Editor [phone] Iris Wilder MD - Colon & Rectal Care Team Information Market Editor Surgery Claudio Castelan MD - Cardiovascular Care Team Information Market Editor Disease Feliberto Villagran MD Care Team Information Market Editor [phone] [facility], [place], [place] Care Team Information Market Editor Region Problems Active Problems Provider Date Essential [...] Eliquis Take One Tablet By 180tabs I48.91 [place], 06/03/2019 5mg Tablets Mouth Twice A Day MD Joycelyn Vitamin B-12 1 by mouth, daily 90tabs K31.84 [place], 06/17/2018 500mcg with meal with MD Joycelyn Tablets dinner with proteintaking 1/2 of 500mcg Lisinopril 1 by mouth every day 90tabs I10 [place], 06/17/2018 20mg in the morning MD Joycelyn Tablets Omeprazole 1 by mouth daily as 90caps K21.9 [place], 05/08/2018 20mg needed, 30min before MD Joycelyn [...] oil Citracal +D3 1 chewtab daily. Unknown [phone]-mg-Unit Chewtabs Ondansetron HCL Take One Tablet By [...] 150tabs I49.3 Feliberto Villagran, 05/25/2019 - 06/10 [facility] 06/18/2019 200mg Tablets dc I48.91 Enoxaparin Sodium I48.91 Unknown 05/22/2019 - 06/05/2019 40mg/0.4ML Solution C34.11 Immunizations CPT Code Status Date Vaccine Reaction Lot # [id number] Given 03/03/2019 Flu Vaccine NOS GIVEN AT PHARMACY 67961 Given 12/17/2018 Pneumococcal 23 Immunization [id number] Adult Or Immunosuppressed Patient Q2039 Given 03/27/2018 [place] [address] Given 11/19/2016 Zoster (Zostavax) nysiis 88185 Given 06/18/2016 Prevnar 13 Pneumococal PER PT WAS GIVEN AT Conjugate Vaccine DR [facility] Q2039 Given 02/24/2016 Flu Vaccine NOS nysiis 53705 Given 12/28/2010 Tetanus And Diptheria Toxoid 7 Years And Older Preserv Free 76371 Given 11/18/2008 Pneumococcal 23 Immunization [facility] Adult Or Immunosuppressed Patient 00184 Refused 06/03/2019 Shingrix (Shingles) 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 get at pharmacy Vaccine HZV, Recombinant, Subunit, Adj Q2039 Refused 01/29/2019 Flu Vaccine NOS will get in fall Refused 05/08/2018 Shingrix (Shingles) Zoster WILL GET IN 2021 Vaccine HZV, Recombinant, Subunit, Adj 49027 Refused 05/08/2018 Tdap (Adacel) Ages 7 And [...] Result H/L Range Note Laboratory test 09/17/2019 [facility] Vitamin D 25 42 ng/mL 30-100 1, 2 finding Hydroxy TSH 2.60 uIU/mL 0.35-4.94 Lipid 09/17/2019 [facility] Cholesterol 207 mg/dL High 50-199 Triglycerides 51 mg/dL 30-200 HDL 86 mg/dL High 35-85 3 Chol/ HDL Ratio 2.4 ratio Low 3.7-5.6 VLDL 10 mg/dL 2-29 LDL (Calc) 111 mg/dL High 20-99 4 Laboratory test finding 09/17/2019 [facility] CPK 136 U/L 12-199 Vitamin B12 594 pg/mL 180-914 Magnesium 2.0 mg/dL 1.5-2.7 CBC with Auto Diff-fcmg 09/17/2019 [facility] WBC 5.4 K/uL 4.1-11.0 5 RBC 4.41 [...] 97 >60 36 Laboratory test finding 06/09/2019 [facility] CK 85 U/L Normal 26-192 37 (315)- - Troponin-I < 0.015 ng/mL 38 Comprehensive Metabolic 06/09/2019 [facility] Glucose 128 mg/dL High 74-106 Panel (315)- [...] 118 U/L High 45-117 CBS W/Automated 06/09/2019 [facility] White Blood 7.4 K/ uL Normal 3.1-10.7 [...] 40.4-72.8 Lymph % 17.1 % Low 20.0-42.0 [place]haw % 3.7 % Low 4.3-13.2 Eo% 1.6 % Normal 0.0-6.6 Bas% 0.5 % Normal 0.0-1.1 Immature Grans 0.4 % Normal 0.0-5.0 NRBC % 0.0 /100WBC < 10/ 100 WBC Neut# 5.67 K/uL Normal 1.8-7.0 Lymph # 1.26 K/uL Normal 1.0-4.0 Kershaw # 0.27 K/uL Low 0.3-0.9 Eos # 0.12 K/uL Normal 0.0-0.5 Baso # 0.04 K/uL Normal 0.0-0.1 Immature Grans Absolute 0.03 K/uL NRBC # 0.00 K/uL Urinalysis With 06/09/2019 [facility] Urine Color Light- Yellow Yellow Microscopic (315)- - Urine Clarity Clear Clear Urine Glucose - Dipstick NEGATIVE mg/dL Negative Urine Bilirubin - Dipstick NEGATIVE Negative Urine Ketone NEGATIVE mg/dL Negative Urine Specific Clarinda 1.006 Low 1.010-1.030 Urine Blood NEGATIVE Negative [...] <SEE NOTE> 40 Comprehensive Met Panel-[facility] 06/04/2019 [facility] Sodium 131 mmol/L Low 135 -146 41, [...] [facility] CPK 34 U/L 12-199 Lipid 06/04/2019 [facility] Cholesterol 188 mg/dL 50-199 Triglycerides 94 mg/dL [...] Diff-fcmg 05/27/2019 [facility] WBC 7.3 K/uL 4.1-11.0 68 RBC 4.09 [...] K/uL 0.0-0.2 84 Comprehensive Met Panel-[facility] 05/27/2019 [facility] Sodium 138 mmol/L 135- 146 85 Potassium [...] 103 >60 90 Laboratory test finding 05/27/2019 [facility] Magnesium 1.7 mg/dL 1.5-2.7 Hemoglobin A1c 05/27/2019 [facility] Hemoglobin A1c 6.1 % High 4.1-5.9 Estimated Average Glucose Calc 128 mg/dL 71-140 1 today or sunday k in [facility] 2 Clinical Guidelines for recommended serum 25(OH)Vitamin [...] by the kidneys. 28 PERFORMED AT [address] [email or web address] [address] Unless otherwise specified, testing performed by [employer] [facility] [place] [address] 29 today letter 30 PERFORMED AT [address] [place] [address] Unless otherwise specified, testing performed by [employer] [facility] [place] [address] 31 Updated reference range on new analyzer [...] kidneys. Procedures Date Code Description Status 06/19/2019 14800 Measure Blood Oxygen Level Single Determination Completed 06/19/2019 66776 Electrocardiogram Complete Completed 06/09/2019 12977 Measure Blood Oxygen Level Single Determination Completed 06/03/2019 75921 Electrocardiogram Complete Completed 05/27/2019 02770 Measure Blood Oxygen Level Single Determination Completed 05/27/2019 35039 Rhythm ECG W/Interpretation & Report Completed 05/27/2019 20521 Electrocardiogram Complete Completed 04/08/2018 45349716 Mammogram Completed 09/01/2014 65506420 Colonoscopy Completed Medical Devices Description No Information Available Encounters Type Date Location Provider Dx Diagnosis Office Visit 09/12/2019 [facility] Joycelyn Littlejohn MD I10 Essential (primary) [...] (BMI) 28.0-28.9, adult Office Visit 06/09/2019 3:30p [facility] Joycelyn Littlejohn MD Z00.01 Encounter for [...] (BMI) 27.0-27.9, adult Office Visit 06/03/2019 4:15p [facility] Joycelyn Littlejohn MD I48.91 Unspecified atrial fibrillation C34.11 Malignant neoplasm of upper lobe, RIGHT bronchus or lung I10 Essential (primary) hypertension K31.84 Gastroparesis E03.9 Hypothyroidism, unspecified Z68.28 Body mass index (BMI) 28.0-28.9, adult Assessments Date Code Description Provider 09/17/2019 E87.1 Hypo-osmolality and hyponatremia Joycelyn Littlejohn [...] Laboratory 09/17/2019 K21.9 Gastro-esophageal reflux disease without Jocyelyn Littlejohn MD esophagitis 09/17/2019 K21.9 Gastro-esophageal reflux disease without Schedule, Laboratory esophagitis 09/17/2019 Z79.899 Other agricultural equipment design engineer (current) drug therapy Joycelyn Littlejohn MD 09/17/2019 Z79.899 Other senior living (current) drug therapy Schedule, Laboratory 09/17/2019 E55.9 Vitamin D deficiency, unspecified [facility] 09/17/2019 E03.9 Hypothyroidism, unspecified [facility] 09/17/2019 E78.2 Mixed hyperlipidemia [facility] 09/17/2019 E87.1 Hypo-osmolality and hyponatremia [facility] 09/17/2019 E53.9 Vitamin B deficiency, unspecified [facility] 09/17/2019 K21.9 Gastro-esophageal reflux disease without [facility] esophagitis 09/17/2019 Z79.899 Other agricultural equipment design engineer (current) drug therapy [facility] 09/12/2019 [...] atrial fibrillation Joycelyn Littlejohn MD 09/12/2019 Z79.01 bi developer (current) use of anticoagulants Joycelyn Littlejohn MD [...] Schedule, Laboratory 06/19/2019 E87.1 Hypo-osmolality and hyponatremia [facility] 06/19/2019 E87.6 [facility] I10 Essential (primary) [facility] 06/09/2019 Z00.01 Encounter for general adult [...] [facility] 06/04/2019 R73.09 [facility] 06/04/2019 C34.11 Malignant neoplasm of [...] [facility] 05/27/2019 R73.09 Other abnormal glucose [facility] Plan of Treatment Future Appointment(s):12/03/2019 9:00 am - Joycelyn Littlejohn MD at [facility]2019 - Joycelyn Littlejohn MDI10 Essential (primary) hypertensionComments:Htn-- BPs appear stable and in good control, reminded [...] as dizziness, lightheadedness, or other concerns.Follow up: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 Continue replacement medication. Reviewed side effects. Please call for concerns about over treatment or under treatment, with symptoms such as fatigue, change in bowel habits/skin/hair/nails, temperature intolerance , weight changes, or other concerns. Take meds in morning, first thing on arising, no food or drink or other meds for 48huvI50.2 Mixed hyperlipidemiaComments:high chollikely high risk, per new guidlelines may contiue statins she has no evidence of cardiovascular disease. continue current meds. monitor for side effects of muscle aches or crampswe watch for liver effects with labsPlease call if you have any concerns.advised per new guidelines , to stop aspirin as risk for bleeding is higher in older patients. For lifestyle, we also recommend: Low fat ( igilu76hq per day), low chol diet ( under 300mg per day chol)focus on lean meat, nonfat 1% dairy, increased veg and fruit, whole grains weight lossexercise build to at least 30min per day. Reviewed signs and symptoms of cardiovascular disease.E87.1 Hypo-osmolality and hyponatremiaComments:stable on recent labsE87.6 HypokalemiaComments:stable on last labs .11 Malignant neoplasm of upper lobe, RIGHT bronchus or lungComments:right upper lobe lung resection on 05/[address] Sullivan fu with surgJ44.9 Chronic obstructive pulmonary disease, unspecifiedComments:mildpt now seeing medical data entry clerk Dr Ng. no inhalers at this time.K21.9 Gastro- esophageal reflux disease without esophagitisComments:GERD/esophagitis-- Symptoms moderately well controlled on current acid sosa [...] a meal. Cautioned risks for malabsorption certain vits, c diff colitis diarrhea and possiblelong term risks for dementia, cardiovascular disease kidney disease, use the lowest effective dose per pt egd with Dr Larsen. She has to take this daily or has symptoms. Suggest dropping one day a week to try a little kgdbgW24.84 GastroparesisComments:gastroparesis --a disease where the muscles of the gastrointestinal tract don't move foods through as quickly as they are supposed. There are many causes. Recommend consuming small meals multiple timesper day. Examples, instead of 3 main meals, consume 200 -300 calories, every 3-4 hours [...] Seek care for persistent cough, unexpected weight loss/fatigue , coughing up blood as these can be signs of lung quqqaaO32.9 Vitamin D deficiency, eswzwrcwpujM51.91 Unspecified atrial fibrillationComments:atrial fibrillation--Rate controlled, continue anticoagulation to help reduce risk of stroke. Please call for chest pain, shortness of breath, palpitations, swelling or excessive bleeding, or any concerns. continues on Eliquis for anticoagulation. monitor for gi bleeding. there is increased risk for gi bleeding with aspirin. watch for abd pain, black or bloody stools. management also with cardiology Dr Spencer79.01 bi developer (current) use of abntoxvydregvoI37.89 Other specified counselingComments:COVID19 counseling Age over 70, [...] Faxed all necessary paperwork needed for the to review and schedule the pt. KR [...] september to check on arrt date/time. 08/[address] [place], [place] [id number] [phone] Claudio Castelan MD 78 yo right upper lobectomy, for lung cancer, Closed with post afib, now converted to sinus rhythm after starting metoprolol , continues on amiodarone. Needs evaluation for afib burden to decide agricultural equipment design engineer amiodarone and anticoage needs. Faxed all necessary paperwork needed for the DrBeto to review and schedule the pt. KR 06/04 Unable to reach the office. LMTCB and update on the referral. KR 06/09 Called and spoke to Alesha who verified that the pt is scheduled for 06/20/19 @ 820am. KR 06/10 [address] [facility] [place] [place] [address] [phone] [facility], [place], [place] 78 yo post op 05/22 lung surg, dc Closed 05/2019 Region 05/25, new afib copd, htn hypothy, would benefit from home care, not driving for 2 weeks home bound , med oversite, vitals managment, physical therapy teacher, occupational health professional evaluate and treat [address] [place] [address] [phone]
--- OUTSIDE RECORDS SUMMARY | 2019-10-05 08:42 | XMS REPORT | Continuity of Care Document ---
:1940 External Reference #:[id number] Author Name [facility] (transmitted by agent of provider Lili LEON) Address [address] [address] Care Team Providers Name Role Phone Valerie Larsenalberto - Gastroenterology Care Team Information Dean Of Student Services [phone] Thoracic Oncology Program (TOP) Care Team Information Dean Of Student Services [phone] Iris Wilder MD - Colon & Rectal Care Team Information Dean Of Student Services Surgery Claudio Castelan MD - Cardiovascular Care Team Information Dean Of Student Services [phone] Disease Feliberto Villagran MD Care Team Information Dean Of Student Services [phone] [facility], [place], [place] Care Team Information Dean Of Student Services [phone] Region Problems Active Problems Provider Date Essential [...] 1 po daily I48.91 Ly Estella 06/19/2019 Scott N.P. 325mg Caps ER 12HR Eliquis Take One Tablet By 180tabs I48.91 [place], 06/03/2019 5mg Tablets Mouth Twice A Day MD Joycelyn Vitamin B-12 1 by mouth, daily 90tabs K31.84 [place], 06/17/2018 500mcg with meal with MD Joycelyn Tablets dinner with proteintaking 1/2 of 500mcg Lisinopril 1 by mouth every day 90tabs I10 [place], 06/17/2018 20mg in the morning MD Joycelyn Tablets Omeprazole 1 by mouth daily as 90caps K21.9 [place], 05/08/2018 20mg needed, 30min before MD Joycelyn [...] oil Citracal +D3 1 chewtab daily. Unknown [phone]-mg-Unit Chewtabs Ondansetron HCL Take One Tablet By K31.84 Erica Larsen 4mg Tablets Mouth Every Day K21.9 History Medications Naproxen Sodium 1 by mouth q12 Unknown 06/05/2019 - hours Due To Stop 06/18/2019 220mg Capsules In 2 Day S Diclofenac Sodium apply to the C34.11 Feliberto Villagran 06/02/2019 - affected area 06/18/2019 1% Gel four times a day as needed Amiodarone HCL 1 po daily per 150tabs I49.3 Feliberto Villagran, 05/25/2019 - 06/10 [facility] 06/18/2019 200mg Tablets dc I48.91 Enoxaparin Sodium I48.91 Unknown 05/22/2019 - 06/05/2019 40mg/0.4ML Solution C34.11 Immunizations CPT Code Status Date Vaccine Reaction Lot # [id number] Given 03/03/2019 Flu Vaccine NOS GIVEN AT PHARMACY 17302 Given 12/17/2018 Pneumococcal 23 Immunization [id number] Adult Or Immunosuppressed Patient Q2039 Given 03/27/2018 [place] [address] Given 11/19/2016 Zoster (Zostavax) nysiis 33066 Given 06/18/2016 Prevnar 13 Pneumococal PER PT WAS GIVEN AT Conjugate Vaccine DR [facility] Q2039 Given 02/24/2016 Flu Vaccine NOS nysiis 98958 Given 12/28/2010 Tetanus And Diptheria Toxoid 7 Years And Older Preserv Free 67504 Given 11/18/2008 Pneumococcal 23 Immunization [facility] Adult Or Immunosuppressed Patient 94995 Refused 06/03/2019 Shingrix (Shingles) Zoster aware semiconductor wafers tester get at pharmacy Vaccine HZV, Recombinant, Subunit, Adj Q2039 Refused 01/29/2019 Flu Vaccine NOS will get in fall Refused 05/08/2018 Shingrix (Shingles) Zoster WILL GET IN 2021 Vaccine HZV, Recombinant, Subunit, Adj 02925 Refused 05/08/2018 Tdap (Adacel) Ages 7 And [...] Hydroxy TSH 2.60 uIU/mL 0.35-4.94 [facility]id [facility] Cholesterol 207 mg/dL High 50-199 Triglycerides 51 mg/dL 30-200 HDL 86 mg/dL High 35-85 3 Chol/ HDL Ratio 2.4 ratio Low 3.7-5.6 VLDL 10 mg/dL 2-29 LDL (Calc) 111 mg/dL High 20-99 4 Laboratory test finding [facility]/17/2019 [facility] CPK 136 U/L 12-199 Vitamin B12 594 pg/mL 180-914 Magnesium 2.0 mg/dL 1.5-2.7 CBC with Auto Diff-fcmg 09/17/2019 [facility] WBC 5.4 K/uL 4.1-11.0 5 RBC 4.41 [...] 97 >60 36 Laboratory test finding 06/09/[address] [facility] CK 85 U/L Normal 26-192 37 (315)- - Troponin-I < 0.015 ng/mL 38 Comprehensive Metabolic 06/09/[address] [facility] Glucose 128 mg/dL High 74-106 Panel (315)- [...] 118 U/L High 45-117 CBS W/Automated 06/09/[address] [facility] White Blood 7.4 K/ uL Normal 3.1-10.7 [...] 40.4-72.8 Lymph % 17.1 % Low 20.0-42.0 [place] % 3.7 % Low 4.3-13.2 Eo% 1.6 % Normal 0.0-6.6 Bas% 0.5 % Normal 0.0-1.1 Immature Grans 0.4 % Normal 0.0-5.0 NRBC % 0.0 /100WBC < 10/ 100 WBC Neut# 5.67 K/uL Normal 1.8-7.0 Lymph # 1.26 K/uL Normal 1.0-4.0 [place] # 0.27 K/uL Low 0.3-0.9 Eos # 0.12 K/uL Normal 0.0-0.5 Baso # 0.04 K/uL Normal 0.0-0.1 Immature Grans Absolute 0.03 K/uL NRBC # 0.00 K/uL Urinalysis With 06/09/2019 [facility] Urine Color Light- Yellow Yellow Microscopic (315)- - Urine Clarity Clear Clear Urine Glucose - Dipstick NEGATIVE mg/dL Negative Urine Bilirubin - Dipstick NEGATIVE Negative Urine Ketone NEGATIVE mg/dL Negative Urine Specific [place] 1.006 Low 1.010-1.030 Urine Blood NEGATIVE Negative [...] 71-140 1 today or sunday k in [facility] 2 Clinical Guidelines for recommended serum 25(OH)Vitamin [...] the kidneys. 28 PERFORMED AT [address] [employer] [place] [address] Unless otherwise specified, testing performed by [employer] [facility] [place] [address] 29 today letter 30 PERFORMED AT [address] [place] [address] Unless otherwise specified, testing performed by [employer] [facility] [place] [address] 31 Updated reference range on new analyzer [...] kidneys. Procedures Date Code Description Status 06/19/2019 59668 Measure Blood Oxygen Level Single Determination Completed 06/19/2019 08710 Electrocardiogram Complete Completed 06/09/2019 89036 Measure Blood Oxygen Level Single Determination Completed 06/03/2019 75100 Electrocardiogram Complete Completed 05/27/2019 82163 Measure Blood Oxygen Level Single Determination Completed 05/27/2019 15754 Rhythm ECG W/Interpretation & Report Completed 05/27/2019 22654 Electrocardiogram Complete Completed 04/08/2018 73237120 Mammogram Completed 09/01/2014 42226241 Colonoscopy Completed Medical Devices Description No Information Available Encounters Type Date Location Provider Dx Diagnosis Office Visit 09/12/2019 [facility] Joycelyn Littlejohn MD I10 Essential (primary) 10:45a hypertension E03.9 Hypothyroidism, unspecified E78.2 Mixed hyperlipidemia E87.1 Hypo-osmolality and hyponatremia E87.6 Hypokalemia C34.11 Malignant neoplasm of upper lobe, RIGHT bronchus or lung J44.9 Chronic obstructive pulmonary disease, unspecified K21.9 Gastro-esophageal reflux disease without esophagitis K31.84 Gastroparesis Z87.891 Personal history of nicotine dependence E55.9 Vitamin D deficiency, unspecified I48.91 Unspecified atrial fibrillation 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 Z71.89 Other specified counseling Z68.28 Body mass index (BMI) 28.0-28.9, adult Office Visit 06/09/2019 3:30p [facility] Joycelyn Littlejohn MD Z00.01 Encounter [...] (BMI) 27.0-27.9, adult Office Visit 06/03/2019 4:15p [facility] Joycelyn Littlejohn MD I48.91 Unspecified [...] without Schedule, Laboratory esophagitis 09/17/2019 Z79.899 Other long chain beamer (current) drug therapy Joycelyn Littlejohn MD 09/17/2019 [...] [facility] esophagitis 09/17/2019 Z79.899 Other jail (current) drug therapy [facility] 09/12/2019 [...] atrial fibrillation Joycelyn Littlejohn MD 09/12/2019 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 Joycelyn Littlejohn MD [...] Schedule, Laboratory 06/19/2019 E87.1 [facility] 06/19/2019 E87.6 [facility] 06/19/2019 I10 Essential (primary) hypertension [facility] 06/09/2019 Z00.01 Encounter for general adult medical Joycelyn Littlejohn MD examination with abnorma 06/09/2019 S00.03xA Contusion of scalp, initial encounter Joycelyn Littlejohn MD 06/09/2019 S09.90xA Unspecified injury of head, initial Joycelyn Littlejohn MD encounter 06/09/2019 R11.0 Nausea Joycelyn Littlejohn MD 06/09/2019 R55 Syncope and collapse Joyeclyn Littlejohn MD 06/09/2019 K31.84 Gastroparesis Joycelyn Littlejohn [...] [facility] 06/04/2019 R73.09 Other [facility] 06/04/2019 C34.11 Malignant neoplasm of [...] 9:00 am - Joycelyn Littlejohn MD at [facility]2019 - Joycelyn Litltejohn MDI10 Essential (primary) hypertensionComments:Htn-- BPs appear stable [...] as dizziness, lightheadedness, or other concerns.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 Continue replacement medication. Reviewed side effects. Please call for concerns about over treatment or under treatment, with symptoms such as fatigue, change in bowel habits/skin/hair/nails, temperature intolerance , weight changes, or other concerns. Take meds in morning, first thing on arising, no food or drink or other meds for 59vxcK99.2 Mixed hyperlipidemiaComments:high chollikely high risk, per new [...] lifestyle, we also recommend: Low fat ( [id number] per day), low chol diet ( under [...] Chronic obstructive pulmonary disease, unspecifiedComments:mildpt now seeing wind farm electrical systems designer Dr Ng. no inhalers at this time.K21.9 [...] day a week to try a little xzqqaZ12.84 GastroparesisComments:gastroparesis --a disease where the muscles of [...] as these can be signs of lung zqrrquY08.9 Vitamin D deficiency, cwjdpygaommB13.91 Unspecified atrial fibrillationComments:atrial fibrillation--Rate controlled, continue anticoagulation to help reduce risk of stroke. Please call for chest pain, shortness of breath, palpitations, swelling or excessive bleeding, or any concerns. continues on Eliquis for anticoagulation. monitor for gi bleeding. there is increased risk for gi bleeding with aspirin. watch for abd pain, black or bloody stools. management also with cardiology Dr Spencer79.01 skilled nursing (current) use of xfeslokdqlmbpcS58.89 Other specified counselingComments:COVID19 counseling Age over 70, [...] september to check on arrt date/time. 08/[address] [place] [address] [phone] Claudio Castelan MD 78 yo right upper [...] @ 820am. KR 06/10 [address] [facility] [place] [address] [phone] H[facility], Home [place], [place] 78 yo post op 05/22 lung surg, dc Closed 05/2019 Region 05/25, new afib copd, htn hypothy, would benefit from home care, not driving for 2 weeks home bound , med oversite, vitals managment, neurological physiotherapist, senior occupational therapist evaluate and treat [address] [facility] [address] [place] [address] [phone]
--- OUTSIDE RECORDS SUMMARY | 2019-10-05 08:42 | XMS REPORT | Summary of Care ---
:1940 Author Organization [facility] Address [address] [place] [address] Care Team Providers Name Role Phone Joycelyn Littlejohn MD Primary Care Provider Reason for Referral Procedure/Treatment (Routine) Status Reason Specialty Diagnoses / Referred By Contact Referred To Procedures Contact Open Diagnoses Pulmonary fibrosis Hamzah Ng MD Procedures Diffusion Capacity (DLCO) PhD [address] [place] [address] [place] [address] Email: [email or web address] Procedure/Treatment (Routine) Status Reason Specialty Diagnoses / Referred By Contact Referred To Procedures Contact Open Diagnoses Pulmonary fibrosis Hamzah Ng MD Procedures Spirometry (Includes Flow Volume Loop) PhD [address] [place] [place] [address] [place], [place] [phone] Email: [email or web address] Procedure/Treatment (Routine) Status Reason Specialty Diagnoses / Referred By Contact Referred To Procedures Contact Open Diagnoses Pulmonary fibrosis Hamzah Ng MD Procedures Outpatient Evaluation for Home O2 (Resting and Walking) PhD [address] [place] [place] [address] [place], [place] [phone] Email: [email or web address] Reason for Visit Reason Comments Follow-up Encounter Details Date Type Department Care Team Description 08/27/2019 Office Visit [facility] Pulmonary at Hamzah Ng MD Pulmonary fibrosis [facility] PhD (Primary Dx) Center [address] [facility] [place] 90 [facility] 2nd Floor [address] 2nd Floor, [address] [place] [phone] Allergies No Known Allergiesdocumented as of this encounter (statuses as of 08/27/2019) Medications Medication Sig Dispensed Refills Start End Date Status Date levothyroxine TAKE ONE 1 Active (SYNTHROID, TABLET BY 9 LEVOTHROID) 75 MCG MOUTH EVERY tablet DAY FIRST THING IN THE MORNING NO FOOD OR MEDS FOR 30MIN lisinopril Take 10 mg by 0 Active (PRINIVIL,ZESTRIL) mouth every 8 10 MG tablet morning metoprolol TAKE ONE 0 Active (TOPROL-XL) 25 MG 24 TABLET BY 9 hr tablet MOUTH EVERY DAY IN THE MORNING omeprazole Take 20 mg by 1 Active (PRILOSEC) 20 MG mouth every 9 capsule evening simvastatin (ZOCOR) Take 40 mg by 1 Active 40 MG tablet mouth nightly 9 NON FORMULARY 10 mg Three 0 Active times daily with meals Cholecalciferol Take 2,000 0 Active (VITAMIN D) 2000 Units by units tablet mouth every morning Cyanocobalamin Take 500 mg 0 Active (VITAMIN B 12 PO) by mouth every morning Amiodarone HCl 200 Take 3 180 tablet 11 05/23/20 Active MG Oral Tablet tablets by 9 20 (PACERONE) mouth Two Times Daily Ondansetron HCl 4 MG Take 1 tablet 20 tablet 1 Active Oral Tablet (ZOFRAN) by mouth 9 every 8 (eight) hours as needed Eliquis 5 MG Oral Take 1 tablet 0 Active Tablet by mouth Two 9 Times Daily amoxicillin-clavulan Take 1 tablet 0 08/21/19 Discontinued ate (AUGMENTIN) by mouth 03 07 (Therapy 875-125 MG per nightly completed) tablet Enoxaparin Sodium 40 Inject 0.4 12 Syringe 0 08/21/19 Discontinued MG/0.4ML mLs into the 9 20 (Formulary Subcutaneous skin daily change) Solution (LOVENOX) Pantoprazole Sodium Take 1 tablet 30 tablet 11 08/21/19 Discontinued 40 MG Oral Tablet by mouth 9 20 (Formulary Delayed Release every morning change) (PROTONIX) before breakfast One Flow Spirometer Use as 1 each 0 08/21/19 Discontinued Kit directed. Use 9 20 (Therapy every hour completed) documented as of this encounter (statuses as of 08/27/2019) Active Problems Problem Noted Date Squamous cell carcinoma of right lung 04/11/2019 Cancer Staging: Clinical stage from 04/11/2019: Stage IA2 (cT1b, cN0, cM0) - Signed by Feliberto Villagran MD on 04/26/2019 Pathologic stage from 06/02/2019: Stage IA2 (pT1b, pN0, cM0) - Signed by Feliberto Villagran MD on 08/07/2019 Overview: Added automatically from request for surgery [id number] ILD (interstitial lung disease) 03/06/2019 Respiratory bronchiolitis associated interstitial lung disease 03/06/2019 Hypertension Hyperlipemia Hypothyroidism Obesity GERD (gastroesophageal reflux disease) documented as of this encounter (statuses as of 08/27/2019) Immunizations Name Administration Dates Next Due Influenza Split 03/03/2019, 03/27/2018, 02/24/2016, 03/18/2015 documented as of this encounter Social History Tobacco Use Types Packs/Day Years Used Date Former Smoker Cigarettes 0 51 Smokeless Tobacco: Never Used Comments: quit in 2006 Alcohol Use Drinks/Week oz/Week Comments Never Alcohol Habits Answer Date Recorded How often do you have a drink containing alcohol? Never 02/12/2019 How many drinks containing alcohol do you have on a typical Not asked day when you are drinking? How often do you have six or more drinks on one occasion? Not asked Sex Assigned at Date Recorded Female 02/12/2019 11:54 AM EDT Job Start Date Occupation Industry Not on file Not on file Not on file Travel History Travel Start Travel End No recent travel history available. documented as of this encounter Last Filed Vital Signs Vital Sign Reading Time Taken Comments Blood Pressure 170/94 08/27/2019 10:14 AM EDT Pulse 76 08/27/2019 10:14 AM EDT Temperature 36.6 08/27/2019 10:11 AM EDT C (97.9 F) Respiratory Rate 16 08/27/2019 10:11 AM EDT Oxygen Saturation 92% 08/27/2019 11:05 AM EDT Inhaled Oxygen Concentration - - Weight 75.4 kg (166 lb 3.2 oz) 08/27/2019 10:11 AM EDT Height 157.5 cm (5' 2.01") 08/27/2019 10:11 AM EDT Body Mass Index 30.39 08/27/2019 10:11 AM EDT documented in this encounter Progress Notes Nakia [email or web address], RN - 08/27/2019 10:00 AM EDT 08/27/19 1100 08/27/19 1105 Pulse Oximetry Rest/Exercsie Rest Exercise SpO2 95 % 92 % Is patient on O2? No No Hamzah Samuels MD PhD - 08/27/2019 10:00 AM EDT REASON FOR VISIT/CHIEF COMPLAINT: RB-ILD/pulmonary fibrosis SOBOE S/p RUL lobectomy for SqCC lung in May 2019 HISTORY OF PRESENTING ILLNESS/INTERIM HISTORY: - made a good recovery from RUL lobectomy 05/2019 - chronic cough, not all the time, non-productive, no significant interference with regular activities or sleep - no interim infections or constitutional symptoms - able to walk approximately 2-3 blocks on level ground at moderate pace - used to be able to walk 12 blocks in the past, ie mid-2018, prior to her thoracic surgery - no chest pains, palpitations, light headedness or ankle edema. PAST MEDICAL HISTORY: Past Medical History: Diagnosis Date Diverticulitis GERD (gastroesophageal reflux disease) Hyperlipemia Hypertension Hypothyroidism Obesity Squamous cell carcinoma of right lung 04/11/2019 Added automatically from request for surgery [id number] Past Surgical History: Procedure Laterality Date CATARACT EXTRACTION COLONOSCOPY MULTIPLE TOOTH EXTRACTIONS OOPHORECTOMY left [place] [facility] EBUS GUIDED SAMPL 1/2 NODE STATION/STRUX N/A 04/22/2019 Procedure: [facility] EBUS GUIDED SAMPL 1/2 NODE STATION/STRUX with cytology; Surgeon: Katie Farr MD; Location: [facility]; Service: Endoscopy; Laterality: N/A; CURRENT MEDICATION: Current Outpatient Medications on File Prior to Visit Medication Sig Dispense Refill Amiodarone HCl 200 MG Oral Tablet (PACERONE) Take 3 tablets by mouth Two Times Daily 180 tablet 11 Cholecalciferol (VITAMIN D) 2000 units tablet Take 2,000 Units by mouth every morning Cyanocobalamin (VITAMIN B 12 PO) Take 500 mg by mouth every morning Eliquis 5 MG Oral Tablet Take 1 tablet by mouth Two Times Daily levothyroxine (SYNTHROID, LEVOTHROID) 75 MCG tablet TAKE ONE TABLET BY MOUTH EVERY DAY FIRST THING IN THE MORNING NO FOOD OR MEDS FOR 30MIN 1 lisinopril (PRINIVIL,ZESTRIL) 10 MG tablet Take 10 mg by mouth every morning metoprolol (TOPROL-XL) 25 MG 24 hr tablet TAKE ONE TABLET BY MOUTH EVERY DAY IN THE MORNING 0 NON FORMULARY 10 mg Three times daily with meals omeprazole (PRILOSEC) 20 MG capsule Take 20 mg by mouth every evening 1 Ondansetron HCl 4 MG Oral Tablet (ZOFRAN) Take 1 tablet by mouth every 8 (eight) hours as needed 20 tablet 1 simvastatin (ZOCOR) 40 MG tablet Take 40 mg by mouth nightly 1 No current facility-administered medications on file prior to visit. ALLERGIES: Patient has no known allergies. SOCIAL HISTORY: & FAMILY HISTORY: No pertinent interval changes reported. The remainder of a limited 10-point review of systems was non-contributory/ unremarkable. PHYSICAL EXAMINATION: GENERAL: comfortable at rest, no acute distress VITAL SIGNS: Visit Vitals BP (!) 170/94 (BP Location: Right arm, Patient Position: Sitting, Cuff size: Regular) Pulse 76 Temp 36.6 C (97.9 F) (Oral) Resp 16 Ht 1.575 m (5' 2.01") Wt 75.4 kg (166 lb 3.2 oz) SpO2 95% BMI 30.39 kg/m on room air, BP high today as she did not take her breakfast and morning anti- hypertensives, but usually well-controlled at home, and denies any headaches or blurred vision at today's clinic visit, advised to take her medication once returned back home HEENT: no cervical or supraclavicular lymphadenopathy, no thyromegaly, moist oral mucous membranes, no oral thrush or lesions, trachea mid-line, edentulous wearing dentures CVS: heart sounds without added audible sounds, calves soft, non-tender, no ankle edema RESPIRATORY: no digital clubbing, chest with bibasilar late inspiratory crackles on auscultation, nowheezing, well-healed scars from thoracic surgery over right side of her posterior chest wall GIT/ABDOMEN: soft, non-tender, no palpable masses/organomegaly MUSCULOSKELETAL: DJD-related changes in hands, knees and ankles but no obvious joint swelling/ grossdeformities/ effusions or overlying redness SKIN: no rashes NEUROLOGICAL: awake and alert with no gross focal neurological deficit PSYCHIATRIC: grossly normal affect, mood, mentation and orientationtation PERTINENT (INTERIM) INVESTIGATIONS: Interval PFTs with relatively stable FVC when accounting for RUL lobectomy with fairly well-preserved lung volumes and adjusted gas transfer and no significant interval decline when compared to 02/2019. A home oxygen evaluation during exertion did not demonstrate significant oxygen desaturation to warrant short-burst oxygen therapy with exertion. ASSESSMENT AND RECOMMENDATIONS/PLAN: Mrs. Almanza is a 78 year old woman with incidental finding of interstitial changes on a chest CT scanobtained following a chest x-ray earlier in 2018 for pneumonic episode from which she subsequently fully recovered. In addition, her CT-imaging picking up on a RUL nodule which turned out to be a squamous cell cancer of the lung for which she has now undergone robotic assisted right upper lobectomy inDecember 2018 with good recovery. At this point she continues to recover which may take several months, and she may not be able to recover fully to her previous baseline given that her lung volume is now reduced s/p lobectomy. However, her concomitant ILD which appears to be most likely related to RB-ILD (Respiratory Bronchiolitis ILD) given extensive remote smoking history (~50 packyears), appears to have remained stable in repeat interval lung function studies, and her symptoms remain mild with relatively well- preserved lung function and good functional status being able to pursue most activitiesof regular daily living except for longer distance walking and exercise in part limited by deconditioning post-surgery. In the past based on prior discussion with patient and her sister who accompanied her again to today's clinic visit, Mrs. Almanza had deferred a lung biopsy, and given overall relative stability with ongoing recovery at this point from her right upper lobectomy, we should refrain from pursuing a lung biopsy at the moment, particularly since the ILD-related changes appears to have remained relatively stable on interval chest CT scans between 7900-2321. I have scheduled a return appointment in 6 months' time with repeat spirometry and gas transfer at that point and I advised her to contact us should she develop any interim worsening in her respiratorysymptoms. I spent 25 minutes in [id number] consultation with the patient today of which at least half were spent counseling on the above outlined diagnosis and management plan with all questions answered to the patient's satisfaction. documented in this encounter Plan of Treatment Date Type Specialty Care Team Description 10/24/2019 Appointment Radiology 10/24/2019 Office Visit Surgery Gwen Clarke, COUPLES THERAPIST [address] [facility] Room [address] [place] [phone] Name Type Priority Associated Diagnoses Order Schedule Outpatient Evaluation for PFT Routine Pulmonary fibrosis 1 Occurrences starting Home O2 (Resting and 08/27/2019 until Walking) 11/29/2020 Spirometry (Includes Flow PFT Routine Pulmonary fibrosis 1 Occurrences starting Volume Loop) 08/27/2019 until 11/29/2020 Diffusion Capacity (DLCO) PFT Routine Pulmonary fibrosis 1 Occurrences starting 08/27/2019 until 11/29/2020 Health Maintenance Due Date Last Done Comments Osteoporosis Screening 2 yr 2005 Pneumococcal Vaccine: 65+ 2005 Years (1 of 2 - PCV13) DTaP,Tdap,and Td Vaccines 01/25/2011 12/28/2010 (2 - Tdap) MMR Vaccines (1 of 1 - 12/17/2016 Standard series) Varicella Vaccines (1 of 2 12/17/2016 11/19/2016 - 2-dose childhood series) Zoster Vaccines (2 of 3) 01/14/2017 11/19/2016 Influenza Vaccine 03/18/2019 03/03/2019, 03/27/2018, 02/24/2016, Additional history exists HIB Vaccines Aged Out No longer eligible based on patient's age to complete this topic Hepatitis A Vaccines Aged Out No longer eligible based on patient's age to complete this topic Hepatitis B Vaccines Aged Out No longer eligible based on patient's age to complete this topic IPV Vaccines Aged Out No longer eligible based on patient's age to complete this topic Pneumococcal Vaccine: Aged Out No longer eligible Pediatrics (0 to 5 Years) based on patient's age and At-Risk Patients (6 to to complete this topic 64 Years) documented as of this encounter Implants Implanted Type Area Chemical Waste Management Technician Device Identifier Shelf Expiration Model / Date Serial / Lot Imp- [employer] Lung Sealnt Dev5/Bx Do Not Change - [id number] [facility] [id number] / Implanted: Qty: 1 on 03/27/2019 at [facility] / documented as of this encounter Results Not on filedocumented in this encounter Visit Diagnoses Diagnosis 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
--- OUTSIDE RECORDS SUMMARY | 2019-10-05 08:42 | XMS REPORT | Continuity of Care Document ---
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 [phone] Medicine Problems Active Problems Provider Date Benign essential hypertension Geovani Galarza MD Onset: 12/28/2015 Hyperlipidemia Geovani Galarza MD Onset: 12/28/2015 Disorder of cardiac function Estella Ly MSN, Onset: 06/20/2019 HOME [facility]PICE RN Paroxysmal supraventricular Estella Ly, ALBERT, Onset: 06/20/2019 tachycardia HOME HOSPICE RN Syncope and collapse Estella Ly MSN, Onset: 06/20/2019 HOME HOSPICE RN Atrial fibrillation Estella Ly, ALBERT, Onset: 06/20/2019 HOME HOSPICE RN Social History Type Date Description Comments Sex [...] Ly 06/20/2019 325mg twice a day Scott, ALBETR, Caps ER 12HR HOME HOSPICE RN Simvastatin 1 by mouth Unknown 40mg Tablets [...] kg/m2 BSA (Body Surface Area) 1.77 m2 [place] body weight in kilograms 50 kg O2 % BldC Oximetry 93 % 06/20/2019 8:14am BP Systolic Sitting Left Arm 138 mmHg BP Diastolic Sitting Left Arm 82 mmHg Heart Rate 74 /min Respiratory Rate 16 /min Height 62 inches 5'2" Weight 159.00 lb BMI (Body Mass Index) 29.1 kg/m2 BSA (Body Surface Area) 1.73 m2 [place] body weight in kilograms 50 kg O2 Saturation Level with Exercise 96 % Ejection Fraction 55% Results Test Acquired Date Facility Test Result H/L Range Note TSH Reflex 06/10/2019 [facility] Thyroid Stim 2.46 uIU/mL Normal 0.30-4.20 1 FT4 And/Or [address] Hormone FT3 [place] [address] [phone] Reflex add FT3? N Reflex add FT4? Y Laboratory 06/10/2019 [facility] Cortisol,Random 18.4 . 2 test finding [address] g/[place] [address] [phone] CBC 06/10/2019 [facility] White Blood Count 6.5 K/uL Normal 3.1-[address] 0.7 [place] [address] [phone] Red Blood Count 4.46 M/uL Normal 3.90-5.40 [...] 10/ 100 WBC Basic Metabolic Panel 06/10/2019 [facility] Glucose 109 mg/dL High 74-106 [address] [place], [place] [address] [phone] BUN 6 mg/dL Low 7-18 Creatinine 0.6 mg/dL Normal 0.6-1.3 Glom Filtration Rate, Estimate >60 mL/min >60 If >60 mL/min >60 4 BUN/Creat 10.0 ratio Sodium 134 mmol/L Low 136-145 Potassium 3.8 mmol/L 3.5-5.1 Chloride 100 mmol/L 98-107 Carbon Dioxide 29 mmol/L Normal 21-32 Anion Gap 5 mEq/L Low 8-16 Calcium 8.4 mg/dL Low 8.5-10.1 Nocturnal Oximetry 03/26/2019 [facility] Low Oximetry 86 % Low 93-98 5 [address] [place], [place] [address] [phone] Fio2 21 Normal 21-100 Heart Rate 70 BPM Duration Of Study 455 MINUTES Total Time Below 88% 0.4 MINUTES Continuous Oximetry 03/25/2019 [facility] Oximetry 93 % Normal 93-98 [address] [place], [place] [address] [phone] Fio2 21 Normal 21-100 Heart Rate 53 BPM Patient Status RESTING 1 HYPONATREMIA, HYPOKALEMIA 2 Cortisol AM 6.2 - 19.4 Cortisol PM 2.3 - 11.9 Performed at: RN - [facility] [address] [id number] Pi/Senior Research Associate: Janae Jara MD, Phone: [phone] [address] DR LITTLEJOHN SENT OVER SODIUM LOW, [...] DEPOLARIZATION,I49.9 Procedures Date Code Description Status 09/03/2019 49729 Debridement Nails Any Method 1-5 Completed 06/24/2019 23492 EKG-Tracing And Report Completed 06/20/2019 03753 EKG-Tracing And Report Completed 06/04/2019 48906 Debridement Nails Any Method 1-5 Completed 03/25/2019 79666 Echocardiogram Complete Completed 03/18/2019 68292 Debridement Nails Any Method 1-5 Completed 03/13/2019 63355 EKG-Tracing And Report Completed Medical Devices Description No Information Available Encounters Type Date Location Provider Dx Diagnosis Office Visit 06/24/2019 Cardiology Office Estella Ly I48.91 Unspecified atrial 11:40a ALBERT Chavez, fibrillation HOME HOSPICE RN R55 Syncope and collapse Office Visit 06/20/2019 Cardiology Estella Ly I48.91 Unspecified atrial 8:20a Office [facility] Chavez, fibrillation HOME HOSPICE RN R55 Syncope and collapse I47.1 Supraventricular tachycardia [...] I49.3 Ventricular 11:20a Pavithra Castaneda M.D., [facility] premature depolarization Assessments Date Code Description Provider 09/03/2019 B35.1 Tinea unguium Tomas Salazar, DPM 09/03/2019 M79.674 Pain in right toe(s) Tomas Salazar, DPM 09/03/2019 M79.675 Pain in left toe(s) Tomas Salazar, DPM 09/03/2019 L60.3 Nail dystrophy Tomas Salazar, DPM 09/03/2019 M20.12 Hallux valgus [...] I48.91 Unspecified atrial fibrillation Estella Ly MSN, [facility] 08/29/2019 R55 Syncope and collapse Estella Ly MSN, [facility] 08/29/2019 I35.0 Nonrheumatic aortic (valve) stenosis Estella Ly MSN, [facility] 08/29/2019 I51.89 Other ill-defined heart diseases Estella Ly MSN, [facility] 06/24/2019 I48.91 Unspecified atrial fibrillation Estella Ly MSN, [facility] 06/24/2019 R55 Syncope and collapse Estella Ly MSN, [facility] 06/20/2019 I48.91 Unspecified atrial fibrillation Estella Ly MSN, [facility] 06/20/2019 R55 Syncope and collapse Estella Ly MSN, [facility] 06/20/2019 I47.1 Supraventricular tachycardia Estella Ly, MSN, [facility] 06/20/2019 I51.89 Other ill-defined heart diseases Estella Ly, MSN, [facility] 06/20/2019 I35.0 Nonrheumatic aortic (valve) stenosis Estella Ly , MSN, [facility] 06/10/2019 R53.1 Weakness Diogo Godinez M.D. 06/10/2019 [...] 06/04/2019 M20.5x2 Other deformities of toe(s) Tomas Salazar DPM (acquired), left foot 06/04/2019 M20.5x1 Other deformities of toe(s) Tomas Salazar DPM (acquired), right foot 06/04/2019 M20.41 Other hammer toe(s) (acquired), right Tomas Salazar DPM foot 06/04/2019 M20.42 Other hammer toe(s) (acquired), left Martin Tomas LYNN foot 03/25/2019 I49.3 Ventricular premature depolarization George Redd MD 03/25/2019 I49.9 Cardiac arrhythmia, unspecified George Redd MD 03/18/2019 B35.1 Tinea unguium Martin LYNN Marin 03/18/2019 L60.3 Nail dystrophy Martin LYNN Marin 03/18/2019 M79.675 Pain in left toe(s) Martin LYNN Marin 03/18/2019 M79.674 Pain in right toe(s) Tomas Salazar LYNN 03/18/2019 S90.851A Superficial foreign body, right foot, Martin LYNN Marin initial encounter 03/18/2019 M20.12 Hallux valgus (acquired), left foot Martin, LYNN Marin 03/18/2019 M20.11 Hallux valgus (acquired), right foot Tomas Salazar DPM 03/18/2019 M20.5x2 Other deformities of toe(s) Tomas Salazar DPM (acquired), left foot 03/18/2019 M20.5x1 Other deformities of toe(s) Martin LYNN Marin (acquired), right foot 03/18/2019 M20.41 Other hammer toe(s) (acquired), right Tomas Salazar TARSHATere foot 03/18/2019 M20.42 Other hammer toe(s) (acquired), left Martin, Tomas LYNN foot 03/13/2019 I49.3 Ventricular premature depolarization Claudio Castelan M.D., [facility] Plan of Treatment Future Appointment(s):11/25/2019 8:40 am - Estella Ly, MSN, HOME HOSPICE RN at Cardiology Foxyvh0611/05/2019 8:20 am - Tomas Salazar DPM at Podiatry [id number] - Tomas Salazar DPMB35.1 Tinea unguiumComments:All the nails were trimmed in length with [...] up:Follow-up in 2 months for mycotic nail careM79.674 Pain in right toe(s)M79.675 Pain in left toe(s)L60.3 Nail dystrophyComments:The thick dystrophic nail (S) 2 left and 2, 3 right was (were ) filed down to a more normal thicknesswith a nail bur and podiatry drill.M20.12 Hallux valgus (acquired), left footM20.11 Hallux valgus (acquired) , right footM20.5x2 Other deformities of toe(s) (acquired), left footM20.5x1 Other deformities of toe(s) (acquired), right footM20.42 Other hammer toe(s) ( acquired), left footM20.41 Other hammer toe(s) (acquired), right foot Functional Status Description No Information Available Mental Status Description No Information Available Referrals Description No Information Available
--- OUTSIDE RECORDS SUMMARY | 2019-10-05 08:42 | XMS REPORT | Summary of Care ---
:1940 Author Organization [facility] Address [address] [place] [address] Care Team Providers Name Role Phone Joycelyn Littlejohn MD Primary Care Provider Reason for Visit Reason Comments Shortness of Breath Encounter Details Date Type Department Care Team Description 08/27/2019 Procedure visit Pulmonary Function Hamzah Ng MD PhD [address] [facility] 2nd Floor [address] [place] [address] ILD (interstitial Testing [facility] Rosa Mendez, LOG GRADER [address] [facility] [address] [place] [address] lung disease) [facility] [address] [id number] Allergies No Known Allergiesdocumented as of this encounter (statuses as of 08/27/2019) Medications Medication Sig Dispensed Refills Start Date End Date Status levothyroxine TAKE ONE 1 12/19/2018 Active (SYNTHROID, LEVOTHROID) TABLET BY 75 MCG tablet MOUTH EVERY DAY FIRST THING IN THE MORNING NO FOOD OR MEDS FOR 30MIN lisinopril Take 10 mg by 0 03/23/2018 Active (PRINIVIL,ZESTRIL) 10 mouth every MG tablet morning metoprolol (TOPROL-XL) TAKE ONE 0 02/05/2019 Active 25 MG 24 hr tablet TABLET BY MOUTH EVERY DAY IN THE MORNING omeprazole (PRILOSEC) Take 20 mg by 1 01/29/2019 Active 20 MG capsule mouth every evening simvastatin (ZOCOR) 40 Take 40 mg by 1 12/19/2018 Active MG tablet mouth nightly NON FORMULARY 10 mg Three 0 Active times daily with meals Cholecalciferol Take 2,000 0 Active (VITAMIN D) 2000 units Units by mouth tablet every morning Cyanocobalamin (VITAMIN Take 500 mg by 0 Active B 12 PO) mouth every morning Amiodarone HCl 200 MG Take 3 tablets 180 tablet 11 05/25/2019 05/23/2020 Active Oral Tablet (PACERONE) by mouth Two Times Daily Ondansetron HCl 4 MG Take 1 tablet 20 tablet 1 06/02/2019 Active Oral Tablet (ZOFRAN) by mouth every 8 (eight) hours as needed Eliquis 5 MG Oral Take 1 tablet 0 06/03/2019 Active Tablet by mouth Two Times Daily documented as of this encounter (statuses as [...] Overview: Added automatically from request for surgery [id number] ILD (interstitial lung disease) 03/06/2019 Respiratory bronchiolitis [...] of this encounter Last Filed Vital Signs Not on filedocumented in this encounter Plan of Treatment Date Type Specialty Care Team Description 10/24/2019 Appointment Radiology 10/24/2019 Office Visit Surgery Gwen Clarke, CAMPAIGN SPECIALIST [address] [facility] Room [address] [place] [id number] Name Type Priority Associated Diagnoses Date/Time Diffusion Capacity PFT Routine ILD (interstitial lung 08/27/2019 9:48 AM EDT ([facility]) disease) Health Maintenance Due Date Last Done Comments [...] of this encounter Implants Implanted Type Area Loan Servicing Officer Device Identifier Shelf Expiration Model / Date Serial / Lot Imp- [employer] Lung Sealnt Dev5/Bx Do Not Change - [id number] [facility] [id number] / Implanted: Qty: 1 on 03/27/2019 at [facility] IN[facility]IENT / documented as of this encounter Procedures Procedure Name Priority Date/Time Associated Diagnosis Comments DIFFUSION CAPACITY Routine 08/27/2019 9:48 AM ILD (interstitial lung ([facility]CO) EDT disease) documented in this encounter Results Not on filedocumented in this encounter Visit Diagnoses Diagnosis ILD (interstitial lung disease) Postinflammatory pulmonary fibrosis documented in this encounter
[2019-10-05 08:54] VITALS: BP 208/124
--- NOTE | 2019-10-05 09:37 | UC ---
Upper Extremity HPI - HPI Summary HPI Summary: 78 yo WF c/o left back pain x 1 week after straining it while packing dishes, hurts to get out of bed, tried prednisone, voltaren gel, pain still 01/25. Denies fall or radiation. - History of Current Complaint Chief Complaint: UCBiteInjury Stated Complaint: BACK PAIN Time Seen by Provider: 10/05/19 08:38 Hx Obtained From: Patient Hx From Patient Unobtainable Due To: Other ?: No Onset/Duration: Sudden Onset Severity Initially: Moderate Severity Currently: Moderate Pain Intensity: 9 Pain Scale Used: 0-10 Numeric Character: Sharp, Dull, Aching Aggravating Factor(s): Movement Alleviating Factor(s): Heat Associated Signs And Symptoms: Positive: Negative - Risk Factors Non-Orthopedic Risk Factor: Negative - Allergies/Home Medications Allergies/Adverse Reactions: Allergies Allergy/AdvReac Type Severity Reaction Status Date / Time No Known Allergies Allergy Verified 10/05/19 08:54 Home Medications: Home Medications Calcium Citrate/Vitamin D3 [Citracal + D Maximum Caplet] 1 tab PO DAILY [History Confirmed 10/05/19] Cholecalciferol (Vitamin D3) [Vitamin D3] 2,000 unit PO DAILY 11/29/18 [History Confirmed 10/05/19] Cyanocobalamin TAB* [Vitamin B12 TAB*] 500 mcg PO DAILY 11/29/18 [History Confirmed 10/05/19] Domperidone 10 mg PO TID 11/29/18 [History Confirmed 10/05/19] Levothyroxine TAB* [Synthroid 75 MCG TAB*] 75 mcg PO DAILY 11/29/18 [History Confirmed 10/05/19] Omeprazole CAP (NF) [Prilosec CAP* 20 MG] 20 mg PO BEDTIME 11/29/18 [History Confirmed 10/05/19] Simvastatin (NF) [Zocor (NF)] 40 mg PO BEDTIME 11/29/18 [History Confirmed 10/04] Apixaban* [Eliquis*] 5 mg PO BID 10/05/19 [History Confirmed 10/05/19] Cyclobenzaprine TAB* [Flexeril 10 MG TAB*] 5 mg PO TID PRN 10/05/19 [History Confirmed 10/05/19] Diclofenac 1% GEL (NF) [Voltaren 1% GEL (NF)] 1 applic TOPICAL BID 10/05/19 [ History Confirmed 10/05/19] Lidocaine PATCH 5%* [Lidoderm 5% Patch*] 1 patch TRANSDERM DAILY 10 Days #10 patch 10/05/19 [Rx] Propafenone ER (NF) [Rythmol ER (NF)] 325 mg PO DAILY 10/05/19 [History Confirmed 10/05/19] hydroCHLOROthiazide [Hydrochlorothiazide] 12.5 mg PO DAILY 10/05/19 [History Confirmed 10/05/19] lisinopriL [Prinivil TAB 20 mg] 20 mg PO DAILY 10/05/19 [History Confirmed 10/04] predniSONE [Prednisone 20 MG TAB] 2 tab PO SEE INSTRUCTIONS 10/05/19 [History Confirmed 10/05/19] PMH/Surg Hx/FS Hx/Imm Hx Previously Healthy: No Endocrine History: Thyroid Disease, Dyslipidemia - Surgical History Surgical History: Yes Surgery Procedure, Year, and Place: left ovary removed. upper right lung lobectomy 05/2019 - Family History Known Family History: Positive: Cardiac Disease, Non-Contributory - Social History Alcohol Use: Rare Substance Use Type: None Smoking Status (MU): Former Smoker Length of Time of Smoking/Using Tobacco: 1 PPD x 37 Years Have You Smoked in the Last Year: No When Did the Patient Quit Smoking/Using Tobacco: 2009 - Immunization History Most Recent Influenza Vaccination: [id number] Review of Systems All Other Systems Reviewed And Are Negative: Yes Constitutional: Positive: Negative Skin: Positive: Negative Eyes: Positive: Negative ENT: Positive: Negative Respiratory: Positive: Negative Cardiovascular: Positive: Negative Gastrointestinal: Positive: Negative Genitourinary: Positive: Negative Motor: Positive: Negative Neurovascular: Positive: Negative Musculoskeletal: Positive: Other: - left mid thoracic pain Neurological/Mental Status: Positive: Negative Psychological: Positive: Negative Is Patient Immunocompromised?: No Physical Exam - Summary Physical Exam Summary: Vital Signs Reviewed: Yes Appearance: Positive: No Pain Distress Skin: Positive: Warm Head/Face: Positive: Normal Head/Face Inspection Eyes: Positive: Normal ENT: Positive: Normal ENT inspection Dental: Negative: Cervical Lymphadenopathy Neck: Positive: Supple Respiratory/Lung Sounds: Positive: Clear to Auscultation Cardiovascular: Positive: Normal, RRR, S1, S2 Abdomen Description: Positive: Nontender Musculoskeletal: Positive:moderate left mid thoracic paraspinal muscle tenderness w/o radiculopathy Neurological: Positive: Normal Psychiatric: Positive: Normal Triage Information Reviewed: Yes Vital Signs: Initial Vital Signs Temp 36.0 C 10/05/19 08:45 Pulse 79 10/05/19 08:45 Resp 18 10/05/19 08:45 BP 208/124 10/05/19 08:45 Pulse Ox 97 10/05/19 08:45 Upper Extremity Course/Dx - Course Course Of Treatment: Left upper back strain - pt already tried prednisone and voltaren gel but pain still 01/25. Prescribed lidocaine patch, advised OTC biofreeze and/or salon pas PRN Elevated BP- pt has h/o afib and HTN, pt on propofenone and HCTZ, manual BP was 200/110, 188/107 , HR 73, trending down from 208/124, pt advised to follow up with home BP cuff and follow up with primary physician. - Differential Dx/Diagnosis Provider Diagnosis: Upper back strain, HTN (hypertension) Discharge ED - Sign-Out/Discharge Documenting (check all that apply): Patient Departure All imaging exams completed and their final reports reviewed: No Studies - Discharge Plan Condition: Stable Disposition: HOME Prescriptions: Lidocaine PATCH 5%* [Lidoderm 5% Patch*] 1 patch TRANSDERM DAILY 10 Days #1 patch Lidocaine PATCH 5%* [Lidoderm 5% Patch*] 1 patch TRANSDERM DAILY 10 Days #10 patch Patient Education Materials: Back Pain (ED) Referrals: Joycelyn Littlejohn MD [Primary Care Provider] - - Billing Disposition and Condition Condition: STABLE Disposition: Home
== END 2019-10-05 09:25 | disposition home or self-care (01) ==
LOC: UCCORT 08:37
DX: S29.012A Strain of muscle and tendon of back wall of thorax, initial encounter (principal); X50.9XXA Other and unspecified overexertion or strenuous movements or postures, initial encounter; Y93.E6 Activity, residential relocation; Y92.9 Unspecified place or not applicable; I10 Essential (primary) hypertension; E07.9 Disorder of thyroid, unspecified; E78.5 Hyperlipidemia, unspecified; Z79.890 Hormone replacement therapy; Z79.899 Other long term (current) drug therapy; Z87.891 Personal history of nicotine dependence
CPT/HCPCS: 99212; G0463